=== PATIENT | female | born 1950 | race Caucasian/White ===

== ENCOUNTER 2017-04-24 09:44 | Observation (INO) ==
[2017-04-24] MEDS ORDERED: SALINE FLUSH 10ml SYRINGE IVF PRN (10:19)
[2017-04-24] MEDS ORDERED: NS 1,000 ML IV ONE (10:19)
--- NOTE | 2017-04-24 10:28 | Emergency Department Report ---
General Adult HPI - General Chief complaint: Weakness Stated complaint: Light headedness/SOA Time Seen by Provider: 04/24/17 09:57 Source: patient, family Mode of arrival: ambulatory Limitations: no limitations - History of Present Illness HPI narrative: 66-year-old female presents to the emergency department with a chief complaint of feeling lightheaded and slightly short of breath. Patient noted onset of symptoms early this morning around 9:00. Patient states she has been expressing these symptoms intermittently dating back to September 2016. Patient has not received a diagnosis yet to explain her symptoms. Patient has not seen her primary care physician regarding her symptoms. She denies any pain or discomfort. Patient was at home when her symptoms began. Symptoms are improving without intervention. She is not truly dizzy. Patient denies any trauma or injury. No other complaints or associated symptoms. She does not note any exacerbating or remitting factors. - Related Data Home Medications Medication Instructions Recorded Confirmed Aspirin [Aspir 81] 81 mg PO DAILY #0 03/21/10 04/24/17 Gabapentin 600 mg PO BID #0 03/21/10 04/24/17 Alendronate [Fosamax] 70 mg PO WEEKLY #0 11/21/12 04/24/17 Furosemide [Lasix] 60 mg PO DAILY #0 11/21/12 04/24/17 Potassium Chloride [Klor-Con M20] 20 meq PO BID #0 11/21/12 04/24/17 diphenhydrAMINE HCl [Benadryl] 25 mg PO QID PRN #0 11/21/12 04/24/17 Amlodipine [Norvasc] 5 mg PO DAILY 04/01/17 04/24/17 Carboxymethylcellulos/Glycerin 1 drop EACH EYE QID PRN 04/01/17 04/24/17 [Refresh Optive Eye Drops] Cholecalciferol (Vitamin D3) 1,000 unit PO DAILY 04/01/17 04/24/17 [Vitamin D3] Ferrous Sulfate [Iron] 325 mg PO DAILY 04/01/17 04/24/17 Hydrocodone/APAP 5/325 [[place] 1 tab PO TID PRN 04/01/17 04/24/17 5/325] Losartan [Cozaar] 50 mg PO DAILY 04/01/17 04/24/17 Meloxicam 15 mg PO DAILY PRN 04/01/17 04/24/17 Multivitamin [Multivitamins] 1 cap PO DAILY 04/01/17 04/24/17 Pyridoxine [Vitamin B-6] 200 mg PO DAILY 04/01/17 04/24/17 Sodium Chloride [Saline Nasal 1 spray EA NOSTRIL DAILY PRN 04/01/17 04/24/17 [place]] Allergies Allergy/AdvReac Type Severity Reaction Status Date / Time pregabalin Allergy Unknown SWELLING Verified 04/24/17 10:07 IN LEGS iodine Allergy Verified 04/24/17 10:07 Review of Systems Constitutional: Denies: fever, weakness Eyes: Denies: eye pain, vision change ENT: Denies: ear pain, throat pain Cardiovascular: Denies: chest pain, palpitations Respiratory: Denies: cough, dyspnea Gastrointestinal: Denies: abdominal pain, nausea, vomiting, diarrhea Genitourinary: Denies: urgency, dysuria Musculoskeletal: Denies: back pain, arthralgia Integumentary: Denies: erythema, rash Neurological: Denies: headache, numbness, vertigo Psychiatric: Denies: anxiety, depression Endocrine: Denies: fatigue, heat or cold intolerance Hematological/Lymphatic: Denies: easy bleeding, easy bruising Allergic/Immunologic: Denies: facial swelling, urticaria PFSH Patient Stated Medical History Hypertension Yes Other Infectious Yes: tissue mass removed from upper chest Post Menopausal No Now No Medical History Updates: osteoporosis. HTN. CAD. Iron def anemia. CHF. Neuropathy. LBP. Situs inversus Surgical History: Orthopedic surgery Family History: Reviewed and noncontributory. - Social History Smoking status: Never smoker Substance use type: does not use Alcohol intake frequency: a few times a week Physical Exam - Limitations Limitations: no limitations - General General appearance: alert, in no apparent distress - Normal Exams: Head:: Normocephalic without trauma Eyes:: Pupils are PERRLA w/ EOMI, No scleral icterus, irritation, or foreign bodies noted ENMT:: No facial trauma, nasal exudates, pharyngeal erythema, or exudates are noted Dental: No fractured, loose, or missing teeth noted Neck:: Full range of motion, without adenopathy, JVD, bruits or thyromegaly Chest/Respirations:: Clear all pe[place], with good airflow, and symmetry bilaterally Cardiovascular:: Regular rate and rhythm, without murmur or gallop, Pulses 2+ all extremities, capillary refill, <2 seconds all extremities Abdomen:: Bowel sounds positive, soft, non-tender, non-distended, no hepatosplenomegaly, masses or bruits noted Lymphatic:: No lymphadenopathy, or lymphedema noted Musculoskeletal:: No tenderness, or deformity noted, good range of motion, all extremities Integumentary:: No rashes, hives, or bruising noted, hair and nails, without abnormality Neurological:: Patient is alert, and oriented, cranial nerves, motor/sensory/ cerebellar, exams w/o gross deficits, to observation Psychiatric:: Patient exhibits, appropriate attention, emotion and affect Course Vital Signs Temperature 98.2 F 04/24/17 09:52 Pulse Rate 73 04/24/17 09:52 Respiratory Rate 17 04/24/17 09:52 Blood Pressure 177/85 H 04/24/17 09:52 Pulse Oximetry 100 04/24/17 09:52 Temperature 98.2 F 04/24/17 09:52 Pulse Rate 69 04/24/17 11:18 Respiratory Rate 20 04/24/17 11:18 Blood Pressure 139/74 04/24/17 11:18 Pulse Oximetry 98 04/24/17 11:18 Medical Decision Making - [facility] Narrative Medical decision making narrative: Labs / imaging were discussed in detail with the patient and questions are answered. Patient was given 500 mL normal saline intravenously times one. Patient was given 324 mg of aspirin by mouth 1 after EKG was reviewed. Patient is not having any chest discomfort or pain. Patient was started on a heparin drip per ACS protocol after EKG was reviewed with cardiology Dr. Chinchilla. Cardiology agrees to accept the patient for admission to the hospital. Cardiology is in agreement that there is no acute ST elevation MO currently present on the patient's EKG. Patient remains chest pain-free in the emergency Department. Patient does not show any reciprocal changes on her EKG. Patient is admitted to the hospital in improved condition for further evaluation and treatment by Cardiology. No further orders from accepting physician who is in agreement with the current plan of management. Patient and family are in agreement with the current plan of management. 60 minutes of critical care time was assessed to the patient due to the elevated troponin. Patient required repeated assessments at the bedside, had potential for decompensation, and required complex medical decision-making. - Differential Diagnosis ACS, Metabolic disorder, Viral Syndrome, UTI - Lab Data Result diagrams: 04/24/17 10:48 04/24/17 10:48 Lab Results 04/24/17 04/24/17 04/24/17 Range/Units 10:36 10:48 10:48 WBC 6.6 (4.5-11.0) T/MM3 RBC 3.95 L (4.00-5.20) M/MM3 Hgb 13.3 (12-16) GM/DL Hct 38.6 (36-46) % MCV 97.7 (80-100) UM3 MCH 33.7 (26-34) UUG MCHC 34.5 (31-37) GM/DL RDW Std Deviation 41.0 (36.9-50.2) FL Plt Count 152 D (130-400) T/MM3 MPV 9.2 L (9.4-12.4) UM3 Immature Gran % (Auto) 0.8 H (0.0-0.5) % Neut % (Auto) 62.9 (33-66) % Lymph % (Auto) 19.3 L (23-45) % [place] % (Auto) 15.1 H (0-9.0) % Eos % (Auto) 1.1 (0-4) % Baso % (Auto) 0.8 (0-2) % Neut # 4.2 (1.8-7.7) T/MM3 Lymph # 1.3 (1-4.8) T/MM3 [place] # 1.0 H (0-0.8) T/MM3 Eos # 0.1 (0-0.5) T/MM3 Baso # 0.1 (0-0.2) T/MM3 Abs Immat Gran (auto) 0.05 H (0.00-0.03) T/MM3 APTT (24-36) SEC Turbidity < 20 (0-20) Sodium 132 L (134-144) MEQ/L Potassium 3.1 L (3.6-5) MEQ/L Chloride 94 L (98-107) MEQ/L Carbon Dioxide 19 L (22-30) MEQ/L Anion Gap 19 H (5-15) MEQ/L BUN 9.0 (7-17) MG/DL Creatinine 0.7 (0.7-1.2) MG/DL GFR Calculation 83 BUN/Creatinine Ratio 13 (6-26) RATIO Glucose 87 (65-110) MG/DL Calculated Osmolality 253 L (261-280) MOSM/KG Calcium 8.9 (8.4-10.2) MG/DL Total Bilirubin 1.20 (0.20-1.30) MG/DL Icterus Index < 2 (0-7) AST 48 H (14-36) U/L ALT 56 H (9-52) U/L Alkaline Phosphatase 90 (38-126) U/L Troponin I 0.181 H (0-0.12) ng/ml Total Protein 7.6 (6.3-8.2) G/DL Albumin 4.4 (3.5-5.0) G/DL Globulin 3.2 (2.4-3.6) G/DL Albumin/Globulin Ratio 1.4 (1.1-2.2) RATIO Specimen Hemolysis < 15 (0-25) Ur Collection Type Urine, clean catch Urine Color Yellow (YELLOW) Urine Clarity Clear Urine pH 6.0 (5.0-8.0) Ur Specific [place] <=1.005 L (1.015-1.025) Urine Protein Negative (NEGATIVE) Urine Glucose (UA) Negative (NEGATIVE) Urine Ketones Negative (NEGATIVE) Urine Occult Blood Trace-lysed (NEGATIVE) Urine Nitrate Negative (NEGATIVE) Urine Bilirubin Negative (NEGATIVE) Urine Urobilinogen 0.2 (NORMAL) EU/DL Ur Leukocyte Esterase 1+ A (NEGATIVE) Urine RBC 0-1 (0-3) /HPF Urine WBC 1-3 (0-5) /HPF Ur Squamous Epith Cells 0-5 Urine Bacteria 1+ H (NEGATIVE) Ur Culture Indicated? Cult not indicated 04/24/17 Range/Units 10:48 WBC (4.5-11.0) T/MM3 RBC (4.00-5.20) M/MM3 Hgb (12-16) GM/DL Hct (36-46) % MCV (80-100) UM3 MCH (26-34) UUG MCHC (31-37) GM/DL RDW Std Deviation (36.9-50.2) FL Plt Count (130-400) T/MM3 MPV (9.4-12.4) UM3 Immature Gran % (Auto) (0.0-0.5) % Neut % (Auto) (33-66) % Lymph % (Auto) (23-45) % [place]irt % (Auto) (0-9.0) % Eos % (Auto) (0-4) % Baso % (Auto) (0-2) % Neut # (1.8-7.7) T/MM3 Lymph # (1-4.8) T/MM3 Wirt # (0-0.8) T/MM3 Eos # (0-0.5) T/MM3 Baso # (0-0.2) T/MM3 Abs Immat Gran (auto) (0.00-0.03) T/MM3 APTT 30.0 (24-36) SEC Turbidity (0-20) Sodium (134-144) MEQ/L Potassium (3.6-5) MEQ/L Chloride (98-107) MEQ/L Carbon Dioxide (22-30) MEQ/L Anion Gap (5-15) MEQ/L BUN (7-17) MG/DL Creatinine (0.7-1.2) MG/DL GFR Calculation BUN/Creatinine Ratio (6-26) RATIO Glucose (65-110) MG/DL Calculated Osmolality (261-280) MOSM/KG Calcium (8.4-10.2) MG/DL Total Bilirubin (0.20-1.30) MG/DL Icterus Index (0-7) AST (14-36) U/L ALT (9-52) U/L Alkaline Phosphatase (38-126) U/L Troponin I (0-0.12) ng/ml Total Protein (6.3-8.2) G/DL Albumin (3.5-5.0) G/DL Globulin (2.4-3.6) G/DL Albumin/Globulin Ratio (1.1-2.2) RATIO Specimen Hemolysis (0-25) Ur Collection Type Urine Color (YELLOW) Urine Clarity Urine pH (5.0-8.0) Ur Specific [place] (1.015-1.025) Urine Protein (NEGATIVE) Urine Glucose (UA) (NEGATIVE) Urine Ketones (NEGATIVE) Urine Occult Blood (NEGATIVE) Urine Nitrate (NEGATIVE) Urine Bilirubin (NEGATIVE) Urine Urobilinogen (NORMAL) EU/DL Ur Leukocyte Esterase (NEGATIVE) Urine RBC (0-3) /HPF Urine WBC (0-5) /HPF Ur Squamous Epith Cells Urine Bacteria (NEGATIVE) Ur Culture Indicated? - EKG Data EKG #1 EKG results narrative: Sinus rhythm. 75 bpm. T-wave inversion in V3-V6. No STEMI. Reviewed with Cardiology: Dr. Chinchilla. No chest pain or reciprocal changes present. Critical Care Time Critical Care Time: Yes Total Critical Care Time: 60 Attestation: 60 minutes of critical care time was spent discussing patient care with the patient and family, treating the patient, documenting the medical record, and making telephone calls for admission on the patient's behalf. Disposition Clinical Impression: Elevated troponin, Abnormal EKG Disposition: 02 [place] [facility] [place] Condition: Improved Time of Disposition: 11:00 (Admit: Dr. Chinchilla. ) - Seen By: physician
--- NOTE | 2017-04-24 10:46 | XRay Report ---
Indication: generalized weakness PROCEDURE: XR chest 2V: Encounter: Initial Comparison: Two-view chest, 04/11/2017 Findings: There is mild cardiomegaly relative to the reference study and minimal prominence of the azygos vein and the pulmonary vasculature which is minimally more prominent before and although there is no evidence of interstitial or airspace edema and pleural fluid is not apparent. There are degenerative changes of spine and fusion of lower lumbosacral spine. Impression: Mild cardiac and pulmonary vascular prominence without overt congestive failure or edema. Radiographic findings may reflect hypervolemia/elevated pulmonary venous pressures. .
[2017-04-24] MEDS ORDERED: ASPIRIN 81 MG CHEWABLE TABLET PO ONE (10:55)
[2017-04-24] MEDS ORDERED: POTASSIUM CHLORIDE PREMIX 10 MEQ/100 ML BAG IV SCH (11:12)
[2017-04-24] MEDS ORDERED: HEPARIN 1,000unit/ml INJECTION 10ml IV ONE (11:22)
[2017-04-24] MEDS ORDERED: HEPARIN DRIP 20,000 UNIT/500 ML BAG IV SCH (11:25)
[2017-04-24] MEDS ORDERED: NITROGLYCERIN 0.4 MG SUBLINGUAL TABLET SL PRN ×2 (12:21→14:27)
[2017-04-24 12:31] VITALS: BMI 31.4
[2017-04-24] MEDS ORDERED: LIDOCAINE 1% (10mg/ml) 30ml SDV INJ ONE (13:35)
[2017-04-24] MEDS ORDERED: HEPARIN 1,000 UNITS/500 ML PREMIX (*CVL ONLY*) IV ONE (13:35)
[2017-04-24] MEDS ORDERED: MIDAZOLAM 2mg/2ml INJECTION ONE (13:36)
[2017-04-24] MEDS ORDERED: NITROGLYCERIN 50MG INJECTION IV ONE (13:36)
[2017-04-24] MEDS ORDERED: Verapamil 5 MG/2 ML VIAL ONE (13:36)
[2017-04-24] MEDS ORDERED: FentaNYL 100 MCG/2 ML INJECTION ONE (13:36)
[2017-04-24] MEDS ORDERED: HEPARIN 1,000unit/ml INJECTION 10ml ONE (13:37)
[2017-04-24] MEDS ORDERED: METHYLPREDNISOLONE SOD SUCC 125mg/2ml INJECTION ONE (14:00)
[2017-04-24] MEDS ORDERED: DiphenhydrAMINE 50 MG/ML INJECTION ONE (14:00)
[2017-04-24] MEDS ORDERED: ATROPINE 1 MG/ML INJECTION IVP PRN (14:27)
[2017-04-24] MEDS ORDERED: MAG-AL + SIM ORAL LIQUID 30ml PO PRN (14:27)
[2017-04-24] MEDS ORDERED: ONDANSETRON 4 MG/2 ML INJECTION IVP PRN (14:27)
[2017-04-24] MEDS ORDERED: PROMETHAZINE 25 MG INJECTION IVP PRN (14:27)
[2017-04-24] MEDS ORDERED: LORazepam 0.5 MG TABLET PO PRN (14:27)
[2017-04-24] MEDS ORDERED: Bisacodyl EC TAB 5 MG TABLET PO PRN (14:27)
[2017-04-24] MEDS ORDERED: ACETAMINOPHEN 325 MG TABLET PO PRN (14:27)
[2017-04-24] MEDS ORDERED: MORPHINE SULFATE 4 MG SYRINGE IVP PRN ×2 (14:27)
[2017-04-24] MEDS ORDERED: BISACODYL 10 MG SUPPOSITORY RECTALLY PRN (14:27)
[2017-04-24] MEDS ORDERED: METOCLOPRAMIDE 10mg/2ml INJECTION IVP PRN (14:27)
[2017-04-24] MEDS: MAGNESIUM SULFATE 1gm PREMIX 1 GM/100 ML BAG IV SCH ×2 (14:35→15:41)
[2017-04-24] MEDS ORDERED: SALINE 0.65% NASAL SPRAY 44 ML BOTTLE EA NOSTRIL PRN (15:11)
[2017-04-24] MEDS ORDERED: HYDROCODONE/APAP 5mg/325mg TABLET PO PRN (15:11)
[2017-04-24] MEDS ORDERED: MELOXICAM 15 MG TABLET PO PRN (15:11)
[2017-04-24] MEDS ORDERED: REFRESH CLASSIC Eye Drops 0.4ml EACH EYE PRN (15:11)
--- NOTE | 2017-04-24 16:12 | Cardiac Catheterization Report ---
TDATE OF PROCEDURE April 24, 2017 INDICATIONS The patient is a very pleasant 66-year-old lady with shortness of breath and abnormal EKG and elevation in troponin and was referred for further evaluation by cardiac catheterization and possible intervention. INFORMED CONSENT Informed consent was obtained after explaining the procedure and the potential risks to the patient who agreed to proceed with the procedure. PROCEDURE 1. Left heart catheterization. 2. Coronary angiography. 3. Left ventriculography. TECHNIQUE The patient was prepped and draped in the usual sterile techniques. Conscious sedation was performed using Versed and fentanyl. 1% lidocaine was used for local anesthesia. Using modified Seldinger technique, arterial access was obtained into the right radial artery with placement of a 6-[place] arterial sheath. 3000 units of heparin, 300 mcg of nitroglycerin, and 2.5 mg of verapamil were given through the arterial sheath. LEFT VENTRICULOGRAPHY Left ventriculography in single-plane RIOS shallow projection showed anterior apical hypokinesia with ejection fraction of about 45-50% with no mitral regurgitation or gradient across the aortic valve. LVEDP was about 10. CORONARY ANGIOGRAPHY Left main, left anterior descending and diagonals, left circumflex and marginals , and right coronary artery were all free of significant lesions. The patient tolerated the procedure well with no complications. IMPRESSION 1. No significant coronary obstructive disease. 2. LV dysfunction with ejection fraction of about 45-50% suggestive of takotsubo cardiomyopathy. PLAN Medical management. MTDD
[2017-04-24] MEDS: CARVEDILOL 3.125 MG TABLET PO SCH ×2 (16:28→16:33)
--- NOTE | 2017-04-24 16:30 | Cardiology History & Physical ---
History of Present Illness Chief complaint: SOA HPI: Thao is a 66-year-old female who presented to the ED with a chief complaint of feeling lightheaded and slightly short of breath. She noted onset of symptoms early this morning around 9:00. She states she has been expressing these symptoms intermittently dating back to September 2016. She has not received a diagnosis yet to explain her symptoms. She has not seen her primary care physician regarding her symptoms. She denies any pain or discomfort. Patient was at home when her symptoms began. Symptoms are improving without intervention. She is not truly dizzy. She denies any trauma or injury. No other complaints or associated symptoms. She is seen in her room on [facility]. She reports GARCIA, dizziness and nausea at times. She denies recent illness, fever, chills, sore throat, cough, chest pain or pressure, V/D, dysurea. Review of Systems - Constitutional Constitutional: Absent: chills, fever(s) - EENMT Eyes: Absent: change in vision Balance: Absent: vertigo Mouth/Throat: Absent: sore throat - Cardiovascular Cardiovascular: Present: dyspnea on exertion, orthopnea. Absent: chest pain, palpitations, syncope Rhythm: Present: regular rhythm Vascular: Absent: pedal edema - Respiratory Respiratory: Absent: cough - Gastrointestinal Gastrointestinal: Present: nausea. Absent: diarrhea, vomiting - Genitourinary Genitourinary: Absent: dysuria - Integumentary/Breasts Integumentary: Absent: rash - Neurological Neurological: Present: dizziness - Endocrine Endocrine: Absent: palpitations PFSH Patient Stated Medical History Hypertension Yes Osteoarthritis Yes Other Infectious Yes: tissue mass removed from upper chest Medical History Updates: osteoporosis. HTN. CAD. Iron def anemia. CHF. Neuropathy. LBP. Situs inversus Surgical History: Orthopedic surgery - Social History Smoking status: Never smoker Substance use type: does not use Alcohol intake frequency: 3 or more drinks per day (vodka) Household members: spouse Current occupational status: unemployed Current residence: Apartment/Private Home Medications Home Medications Medication Instructions Recorded Confirmed Type Aspirin [Aspir 81] 81 mg PO DAILY #0 03/21/10 04/24/17 History Gabapentin 600 mg PO BID #0 03/21/10 04/24/17 History Alendronate [Fosamax] 70 mg PO WEEKLY #0 11/21/12 04/24/17 History Furosemide [Lasix] 60 mg PO DAILY #0 11/21/12 04/24/17 History Potassium Chloride [Klor-Con M20] 20 meq PO BID #0 11/21/12 04/24/17 History diphenhydrAMINE HCl [Benadryl] 25 mg PO QID PRN #0 11/21/12 04/24/17 History Amlodipine [Norvasc] 5 mg PO DAILY 04/01/17 04/24/17 History Carboxymethylcellulos/Glycerin 1 drop EACH EYE QID PRN 04/01/17 04/24/17 History [Refresh Optive Eye Drops] Cholecalciferol (Vitamin D3) 1,000 unit PO DAILY 04/01/17 04/24/17 History [Vitamin D3] Ferrous Sulfate [Iron] 325 mg PO DAILY 04/01/17 04/24/17 History Hydrocodone/APAP 5/325 [[place] 1 tab PO TID PRN 04/01/17 04/24/17 History 5/325] Losartan [Cozaar] 50 mg PO DAILY 04/01/17 04/24/17 History Meloxicam 15 mg PO DAILY PRN 04/01/17 04/24/17 History Multivitamin [Multivitamins] 1 cap PO DAILY 04/01/17 04/24/17 History Pyridoxine [Vitamin B-6] 200 mg PO DAILY 04/01/17 04/24/17 History Sodium Chloride [Saline Nasal 1 spray EA NOSTRIL DAILY PRN 04/01/17 04/24/17 History [place]] Allergies Allergy/AdvReac Type Severity Reaction Status Date / Time pregabalin Allergy Unknown SWELLING Verified 04/24/17 10:07 IN LEGS iodine Allergy Verified 04/24/17 10:07 Exam Vital signs: Temperature 98.8 F 04/24/17 12:31 Pulse Rate 75 04/24/17 16:00 Respiratory Rate 20 04/24/17 16:00 Blood Pressure 137/71 04/24/17 16:00 Pulse Oximetry 97 04/24/17 16:00 Oxygen Delivery Method Room Air - Constitutional mild distress, obese, cooperative - Routine HEENT Exam Head: Present: normocephalic - Routine Neck Exam Absent: JVD, carotid bruit - Routine Chest/Breast/Axilla Exam Chest wall: Absent: tenderness - Routine Respiratory Exam Present: decreased breath sounds, CTA bilaterally. Absent: rales, wheezes - Routine Cardiovascular Exam Present: RRR, no murmur. Absent: JVD - Routine Abdominal Exam Present: soft, normoactive bowel sounds - Routine Extremities Exam Present: no edema - Routine Skin Exam Present: intact, dry, warm - Routine Neurological Exam Present: alert, oriented X3 - Routine Psychiatric Exam Present: normal affect, normal thought process Results 04/25/17 04:49 04/25/17 04:49 Intake and Output 04/24/17 04/24/17 04/24/17 06:59 14:59 22:59 Intake Total 10.875 / 670.775 100 / 100 Balance 10.875 / 670.775 100 / 100 Intake: IV 10.875 / 10.875 100 / 100 HEPARIN DRIP 20,000 unit 10.875 / 10.875 In 500 ml @ 22.5 mls/hr IV .[id number] ALESSANDRO Rx#: [id number] MAG SULF 1gm PREMIX 1 gm 100 / 100 In 100 ml @ 100 mls/hr IV Q1H ALESSANDRO Rx#:[id number] Other: # Voids 1 1 # Bowel Movements 1 Weight 171 lb 8.314 oz Patient Weight 04/25/17 06:59 Weight 171 lb 8.314 oz Laboratory Results - last 48 hr 04/24/17 04/24/17 04/24/17 10:36 10:45 10:48 WBC 6.6 RBC 3.95 L Hgb 13.3 Hct 38.6 MCV 97.7 MCH 33.7 MCHC 34.5 RDW Std Deviation 41.0 Plt Count 152 D MPV 9.2 L Immature Gran % (Auto) 0.8 H Neut % (Auto) 62.9 Lymph % (Auto) 19.3 L [place] % (Auto) 15.1 H Eos % (Auto) 1.1 Baso % (Auto) 0.8 Neut # 4.2 Lymph # 1.3 [place] # 1.0 H Eos # 0.1 Baso # 0.1 Abs Immat Gran (auto) 0.05 H APTT Turbidity Sodium Potassium Chloride Carbon Dioxide Anion Gap BUN Creatinine GFR Calculation BUN/Creatinine Ratio Glucose Calculated Osmolality Calcium Magnesium 1.3 L Total Bilirubin Icterus Index AST ALT Alkaline Phosphatase Troponin I Total Protein Albumin Globulin Albumin/Globulin Ratio Specimen Hemolysis Ur Collection Type Urine, clean catch Urine Color Yellow Urine Clarity Clear Urine pH 6.0 Ur Specific [place] <=1.005 L Urine Protein Negative Urine Glucose (UA) Negative Urine Ketones Negative Urine Occult Blood Trace-lysed Urine Nitrate Negative Urine Bilirubin Negative Urine Urobilinogen 0.2 Ur Leukocyte Esterase 1+ A Urine RBC 0-1 Urine WBC 1-3 Ur Squamous Epith Cells 0-5 Urine Bacteria 1+ H Ur Culture Indicated? Cult not indicated 04/24/17 04/24/17 10:48 10:48 WBC RBC Hgb Hct MCV MCH MCHC RDW Std Deviation Plt Count MPV Immature Gran % (Auto) Neut % (Auto) Lymph % (Auto) [place] % (Auto) Eos % (Auto) Baso % (Auto) Neut # Lymph # [place] # Eos # Baso # Abs Immat Gran (auto) APTT 30.0 Turbidity < 20 Sodium 132 L Potassium 3.1 L Chloride 94 L Carbon Dioxide 19 L Anion Gap 19 H BUN 9.0 Creatinine 0.7 GFR Calculation 83 BUN/Creatinine Ratio 13 Glucose 87 Calculated Osmolality 253 L Calcium 8.9 Magnesium Total Bilirubin 1.20 Icterus Index < 2 AST 48 H ALT 56 H Alkaline Phosphatase 90 Troponin I 0.181 H Total Protein 7.6 Albumin 4.4 Globulin 3.2 Albumin/Globulin Ratio 1.4 Specimen Hemolysis < 15 Ur Collection Type Urine Color Urine Clarity Urine pH Ur Specific [place] Urine Protein Urine Glucose (UA) Urine Ketones Urine Occult Blood Urine Nitrate Urine Bilirubin Urine Urobilinogen Ur Leukocyte Esterase Urine RBC Urine WBC Ur Squamous Epith Cells Urine Bacteria Ur Culture Indicated? - Imaging and Cardiology Echo: report reviewed EKG results: image reviewed Imaging & Cardiology Narrative: Date of Exam: 04/24/17 Ordering Provider: Leroy Galindo DO Type of Exam(s): XR chest 2V Reason for Exam(s): generalized weakness Indication: generalized weakness PROCEDURE: XR chest 2V: Encounter: Initial Comparison: Two-view chest, 04/11/2017 Findings: There is mild cardiomegaly relative to the reference study and minimal prominence of the azygos vein and the pulmonary vasculature which is minimally more prominent before and although there is no evidence of interstitial or airspace edema and pleural fluid is not apparent. There are degenerative changes of spine and fusion of lower lumbosacral spine. Impression: Mild cardiac and pulmonary vascular prominence without overt congestive failure or edema. Radiographic findings may reflect hypervolemia/elevated pulmonary venous pressures. 04/24/17 16:35 04/25/17 10:36 Date of Exam: 04/24/17 Type of Exam(s): US echo doppler complete DATE OF PROCEDURE April 24, 2017 This is a two-dimensional echo with spectral Doppler, color-flow and M-mode. It was obtained in a patient with shortness of air. Left atrial dimension is normal. Left ventricle end-diastolic dimension is normal. Left ventricle wall thickness is normal. [place] is hypokinetic with ejection fraction of about 55%. Right atrium is normal. Right ventricle is normal. Aortic root dimension is normal. Mitral valve is morphologically normal with mild mitral regurgitation. Aortic valve is a trileaflet structure with no stenosis. Mild aortic insufficiency is present. Tricuspid valve shows mild tricuspid regurgitation with mild pulmonary hypertension with estimated pulmonary artery systolic pressure of 38. Pulmonary valve shows trace of pulmonary insufficiency. There is no pericardial effusion. IMPRESSION 1. Apical hypokinesia with ejection fraction of about 55%. 2. Mild mitral regurgitation. 3. Mild aortic insufficiency. 4. Mild tricuspid regurgitation with mild pulmonary hypertension with estimated pulmonary artery systolic pressure of 38. 5. Trace of pulmonary insufficiency. - EKG Interpretation EKG: sinus rhythm EKG interpretations - Dysrhythmias Sinus rhythms and dysrhythmias: sinus rhythm - Blocks, axis, hypertrophy, ST abn Repolarization changes or abnormalities: ST or T wave suggestive of ischemia Hospital Course This is a general summary of the patient's hospital course. For more details refer to the complete medical record. Assessment and Plan (1) Takotsubo cardiomyopathy Status: Acute Start BB, already takes ARB and CCB. Obtain echo, monitor telemetry. (2) Essential (primary) hypertension Status: Acute continue home meds. (3) Alcohol use Status: Acute Patient reports "2 glasses of vodka daily" - Attestation Attestation Narrative: 04/25/17 14:04 Recommendation After examining the patient I agree with the above assessment. I am involved in the formulation of the patient's plan of care. Sepsis Assessment - Evaluation Sepsis screening result: No Definite Risk
[2017-04-24] MEDS: NS 1,000 ML IV SCH (16:34)
[2017-04-24] MEDS: GABAPENTIN 600 MG PO SCH (21:19)
[2017-04-24] MEDS: HYDROCODONE/APAP 5mg/325mg TABLET PO PRN (23:30)
[2017-04-25 04:29] VITALS: RESP 22; O2SAT 97
[2017-04-25] MEDS ORDERED: FERROUS SULFATE 324 MG TABLET PO SCH (08:00)
[2017-04-25] MEDS: CARVEDILOL 3.125 MG TABLET PO SCH (08:10)
[2017-04-25] MEDS: GABAPENTIN 600 MG PO SCH (08:12)
[2017-04-25] MEDS: HYDROCODONE/APAP 5mg/325mg TABLET PO PRN (08:13)
[2017-04-25] MEDS ORDERED: POM LOSARTAN 50 MG TABLET PO SCH (09:00)
[2017-04-25] MEDS ORDERED: POM AMLODIPINE 5 MG TABLET PO SCH (09:00)
[2017-04-25] MEDS ORDERED: MULTI-VITAMIN PLAIN TABLET PO SCH (09:00)
[2017-04-25] MEDS ORDERED: POM FUROSEMIDE 40 MG TABLET PO SCH (09:00)
[2017-04-25] MEDS ORDERED: PYRIDOXINE 100mg TABLET PO SCH (09:00)
[2017-04-25] MEDS ORDERED: POM ASPIRIN *EC* 81 MG TABLET PO SCH (09:00)
--- NOTE | 2017-04-25 09:26 | Echocardiogram ---
DATE OF PROCEDURE April 24, 2017 This is a two-dimensional echo with spectral Doppler, color-flow and M-mode. It was obtained in a patient with shortness of air. Left atrial dimension is normal. Left ventricle end-diastolic dimension is normal. Left ventricle wall thickness is normal. Marrero is hypokinetic with ejection fraction of about 55%. Right atrium is normal. Right ventricle is normal. Aortic root dimension is normal. Mitral valve is morphologically normal with mild mitral regurgitation. Aortic valve is a trileaflet structure with no stenosis. Mild aortic insufficiency is present. Tricuspid valve shows mild tricuspid regurgitation with mild pulmonary hypertension with estimated pulmonary artery systolic pressure of 38. Pulmonary valve shows trace of pulmonary insufficiency. There is no pericardial effusion. IMPRESSION 1. Apical hypokinesia with ejection fraction of about 55%. 2. Mild mitral regurgitation. 3. Mild aortic insufficiency. 4. Mild tricuspid regurgitation with mild pulmonary hypertension with estimated pulmonary artery systolic pressure of 38. 5. Trace of pulmonary insufficiency. MTDD
[2017-04-25 09:43] VITALS: BP 119/60; PULSE 68; TEMP 97.7
--- NOTE | 2017-04-25 10:40 | Discharge Summary ---
<Jeanne Ahuja - Last Filed: 04/25/17 10:37> Discharge Information Date of admission: 04/24/17 11:47 Anticipated date of discharge: 04/25/17 Attending Physician: Len Chinchilla MD Primary care physician: Jerome Leslie MD - Discharge Diagnosis Discharge Diagnosis: Takotsubo Cardiomyopathy - Procedures Procedures: Date of Exam: 04/24/17 Type of Exam(s): CA heart cath LT TDATE OF PROCEDURE April 24, 2017 INDICATIONS The patient is a very pleasant 66-year-old lady with shortness of breath and abnormal EKG and elevation in troponin and was referred for further evaluation by cardiac catheterization and possible intervention. INFORMED CONSENT Informed consent was obtained after explaining the procedure and the potential risks to the patient who agreed to proceed with the procedure. PROCEDURE 1. Left heart catheterization. 2. Coronary angiography. 3. Left ventriculography. TECHNIQUE The patient was prepped and draped in the usual sterile techniques. Conscious sedation was performed using Versed and fentanyl. 1% lidocaine was used for local anesthesia. Using modified Seldinger technique, arterial access was obtained into the right radial artery with placement of a 6-Sami arterial sheath. 3000 units of heparin, 300 mcg of nitroglycerin, and 2.5 mg of verapamil were given through the arterial sheath. LEFT VENTRICULOGRAPHY Left ventriculography in single-plane RIOS shallow projection showed anterior apical hypokinesia with ejection fraction of about 45-50% with no mitral regurgitation or gradient across the aortic valve. LVEDP was about 10. CORONARY ANGIOGRAPHY Left main, left anterior descending and diagonals, left circumflex and marginals , and right coronary artery were all free of significant lesions. The patient tolerated the procedure well with no complications. IMPRESSION 1. No significant coronary obstructive disease. 2. LV dysfunction with ejection fraction of about 45-50% suggestive of takotsubo cardiomyopathy. PLAN Medical management. - Laboratory Labs: 04/25/17 04:49 04/25/17 04:49 Laboratory Results - last 48 hr 04/24/17 04/24/17 04/24/17 10:36 10:45 10:48 WBC 6.6 RBC 3.95 L Hgb 13.3 Hct 38.6 MCV 97.7 MCH 33.7 MCHC 34.5 RDW Std Deviation 41.0 Plt Count 152 D MPV 9.2 L Immature Gran % (Auto) 0.8 H Neut % (Auto) 62.9 Lymph % (Auto) 19.3 L [place] % (Auto) 15.1 H Eos % (Auto) 1.1 Baso % (Auto) 0.8 Neut # 4.2 Lymph # 1.3 [place] # 1.0 H Eos # 0.1 Baso # 0.1 Abs Immat Gran (auto) 0.05 H APTT Turbidity Sodium Potassium Chloride Carbon Dioxide Anion Gap BUN Creatinine GFR Calculation BUN/Creatinine Ratio Glucose Calculated Osmolality Calcium Magnesium 1.3 L Total Bilirubin Icterus Index AST ALT Alkaline Phosphatase Troponin I Total Protein Albumin Globulin Albumin/Globulin Ratio Triglycerides Cholesterol LDL Cholesterol, Calc VLDL Cholesterol HDL Cholesterol Cholesterol/HDL Ratio Specimen Hemolysis Ur Collection Type Urine, clean catch Urine Color Yellow Urine Clarity Clear Urine pH 6.0 Ur Specific [place] <=1.005 L Urine Protein Negative Urine Glucose (UA) Negative Urine Ketones Negative Urine Occult Blood Trace-lysed Urine Nitrate Negative Urine Bilirubin Negative Urine Urobilinogen 0.2 Ur Leukocyte Esterase 1+ A Urine RBC 0-1 Urine WBC 1-3 Ur Squamous Epith Cells 0-5 Urine Bacteria 1+ H Ur Culture Indicated? Cult not indicated 04/24/17 04/24/17 04/24/17 10:48 10:48 17:35 WBC RBC Hgb Hct MCV MCH MCHC RDW Std Deviation Plt Count MPV Immature Gran % (Auto) Neut % (Auto) Lymph % (Auto) [place] % (Auto) Eos % (Auto) Baso % (Auto) Neut # Lymph # [place] # Eos # Baso # Abs Immat Gran (auto) APTT 30.0 Turbidity < 20 Sodium 132 L Potassium 3.1 L Chloride 94 L Carbon Dioxide 19 L Anion Gap 19 H BUN 9.0 Creatinine 0.7 GFR Calculation 83 BUN/Creatinine Ratio 13 Glucose 87 Calculated Osmolality 253 L Calcium 8.9 Magnesium Total Bilirubin 1.20 Icterus Index < 2 AST 48 H ALT 56 H Alkaline Phosphatase 90 Troponin I 0.181 H 0.169 H Total Protein 7.6 Albumin 4.4 Globulin 3.2 Albumin/Globulin Ratio 1.4 Triglycerides Cholesterol LDL Cholesterol, Calc VLDL Cholesterol HDL Cholesterol Cholesterol/HDL Ratio Specimen Hemolysis < 15 < 15 Ur Collection Type Urine Color Urine Clarity Urine pH Ur Specific [place] Urine Protein Urine Glucose (UA) Urine Ketones Urine Occult Blood Urine Nitrate Urine Bilirubin Urine Urobilinogen Ur Leukocyte Esterase Urine RBC Urine WBC Ur Squamous Epith Cells Urine Bacteria Ur Culture Indicated? 04/24/17 04/25/17 04/25/17 23:13 04:49 04:49 WBC RBC Hgb Hct MCV MCH MCHC RDW Std Deviation Plt Count MPV Immature Gran % (Auto) Neut % (Auto) Lymph % (Auto) [place] % (Auto) Eos % (Auto) Baso % (Auto) Neut # Lymph # [place] # Eos # Baso # Abs Immat Gran (auto) APTT Turbidity < 20 Sodium 137 Potassium 4.0 D Chloride 104 D Carbon Dioxide 19 L Anion Gap 14 BUN 11.0 Creatinine 0.6 L GFR Calculation 100 BUN/Creatinine Ratio 18 Glucose 153 H Calculated Osmolality 266 Calcium 8.6 Magnesium 2.3 D Total Bilirubin Icterus Index < 2 AST ALT Alkaline Phosphatase Troponin I 0.133 H 0.095 Total Protein Albumin Globulin Albumin/Globulin Ratio Triglycerides 93 Cholesterol 196 LDL Cholesterol, Calc 105.4 VLDL Cholesterol 18.6 HDL Cholesterol 72 H Cholesterol/HDL Ratio 2.7 Specimen Hemolysis < 15 27 H Ur Collection Type Urine Color Urine Clarity Urine pH Ur Specific [place] Urine Protein Urine Glucose (UA) Urine Ketones Urine Occult Blood Urine Nitrate Urine Bilirubin Urine Urobilinogen Ur Leukocyte Esterase Urine RBC Urine WBC Ur Squamous Epith Cells Urine Bacteria Ur Culture Indicated? 04/25/17 04:49 WBC 5.2 RBC 3.84 L Hgb 12.9 Hct 37.7 MCV 98.2 MCH 33.6 MCHC 34.2 RDW Std Deviation 41.5 Plt Count 173 MPV 9.8 Immature Gran % (Auto) 1.1 H Neut % (Auto) 83.8 H Lymph % (Auto) 11.1 L [place] % (Auto) 3.8 Eos % (Auto) 0.0 Baso % (Auto) 0.2 Neut # 4.4 Lymph # 0.6 L [place] # 0.2 Eos # 0.0 Baso # 0.0 Abs Immat Gran (auto) 0.06 H APTT Turbidity Sodium Potassium Chloride Carbon Dioxide Anion Gap BUN Creatinine GFR Calculation BUN/Creatinine Ratio Glucose Calculated Osmolality Calcium Magnesium Total Bilirubin Icterus Index AST ALT Alkaline Phosphatase Troponin I Total Protein Albumin Globulin Albumin/Globulin Ratio Triglycerides Cholesterol LDL Cholesterol, Calc VLDL Cholesterol HDL Cholesterol Cholesterol/HDL Ratio Specimen Hemolysis Ur Collection Type Urine Color Urine Clarity Urine pH Ur Specific [place] Urine Protein Urine Glucose (UA) Urine Ketones Urine Occult Blood Urine Nitrate Urine Bilirubin Urine Urobilinogen Ur Leukocyte Esterase Urine RBC Urine WBC Ur Squamous Epith Cells Urine Bacteria Ur Culture Indicated? - Radiology Radiology: Date of Exam: 04/24/17 Type of Exam(s): US echo doppler complete DATE OF PROCEDURE April 24, 2017 This is a two-dimensional echo with spectral Doppler, color-flow and M-mode. It was obtained in a patient with shortness of air. Left atrial dimension is normal. Left ventricle end-diastolic dimension is normal. Left ventricle wall thickness is normal. Fletcher is hypokinetic with ejection fraction of about 55%. Right atrium is normal. Right ventricle is normal. Aortic root dimension is normal. Mitral valve is morphologically normal with mild mitral regurgitation. Aortic valve is a trileaflet structure with no stenosis. Mild aortic insufficiency is present. Tricuspid valve shows mild tricuspid regurgitation with mild pulmonary hypertension with estimated pulmonary artery systolic pressure of 38. Pulmonary valve shows trace of pulmonary insufficiency. There is no pericardial effusion. IMPRESSION 1. Apical hypokinesia with ejection fraction of about 55%. 2. Mild mitral regurgitation. 3. Mild aortic insufficiency. 4. Mild tricuspid regurgitation with mild pulmonary hypertension with estimated pulmonary artery systolic pressure of 38. 5. Trace of pulmonary insufficiency. Date of Exam: 04/24/17 Ordering Provider: Leroy Galindo DO Type of Exam(s): XR chest 2V Reason for Exam(s): generalized weakness Indication: generalized weakness PROCEDURE: XR chest 2V: Encounter: Initial Comparison: Two-view chest, 04/11/2017 Findings: There is mild cardiomegaly relative to the reference study and minimal prominence of the azygos vein and the pulmonary vasculature which is minimally more prominent before and although there is no evidence of interstitial or airspace edema and pleural fluid is not apparent. There are degenerative changes of spine and fusion of lower lumbosacral spine. Impression: Mild cardiac and pulmonary vascular prominence without overt congestive failure or edema. Radiographic findings may reflect hypervolemia/elevated pulmonary venous pressures. History of Present Illness HPI: Thao is a 66-year-old female who presented to the ED with a chief complaint of feeling lightheaded and slightly short of breath. She noted onset of symptoms early this morning around 9:00. She states she has been expressing these symptoms intermittently dating back to September 2016. She has not received a diagnosis yet to explain her symptoms. She has not seen her primary care physician regarding her symptoms. She denies any pain or discomfort. Patient was at home when her symptoms began. Symptoms are improving without intervention. She is not truly dizzy. She denies any trauma or injury. No other complaints or associated symptoms. She is seen in her room on [facility]. She reports GARCIA, dizziness and nausea at times. She denies recent illness, fever, chills, sore throat, cough, chest pain or pressure, V/D, dysurea. Hospital Course This is a general summary of the patient's hospital course. For more details refer to the complete medical record. Time spent with patient: 25 - 35 minutes Exam Vital signs: Temperature 97.7 F 04/25/17 07:45 Pulse Rate 68 04/25/17 09:30 Respiratory Rate 22 04/25/17 09:30 Blood Pressure 119/60 04/25/17 09:30 Pulse Oximetry 97 04/25/17 07:45 Oxygen Delivery Method Room Air - Constitutional no acute distress, well nourished, cooperative - Routine HEENT Exam Head: Present: normocephalic ENT: Present: mucous membranes moist - Routine Neck Exam Absent: JVD, carotid bruit - Routine Chest/Breast/Axilla Exam Chest wall: Absent: tenderness - Routine Respiratory Exam Present: CTA bilaterally. Absent: rales, wheezes - Routine Cardiovascular Exam Present: RRR, no murmur. Absent: JVD - Routine Abdominal Exam Present: soft, normoactive bowel sounds - Routine Extremities Exam Present: no edema - Routine Skin Exam Present: intact, dry, warm - Routine Neurological Exam Present: alert, oriented X3 - Routine Psychiatric Exam Present: normal affect, normal thought process Results 04/25/17 04:49 04/25/17 04:49 Cardiac Enzymes 04/24/17 04/24/17 04/25/17 Range/Units 17:35 23:13 04:49 Troponin I 0.169 H 0.133 H 0.095 (0-0.12) ng/ml Lipids 04/25/17 Range/Units 04:49 Triglycerides 93 (35-135) MG/DL Cholesterol 196 (132-199) MG/DL HDL Cholesterol 72 H (40-60) MG/DL Cholesterol/HDL Ratio 2.7 (0-4.0) RATIO CBC 04/25/17 Range/Units 04:49 WBC 5.2 (4.5-11.0) T/MM3 RBC 3.84 L (4.00-5.20) M/MM3 Hgb 12.9 (12-16) GM/DL Hct 37.7 (36-46) % Plt Count 173 (130-400) T/MM3 Neut # 4.4 (1.8-7.7) T/MM3 Lymph # 0.6 L (1-4.8) T/MM3 [place] # 0.2 (0-0.8) T/MM3 Eos # 0.0 (0-0.5) T/MM3 Baso # 0.0 (0-0.2) T/MM3 Comprehensive Metabolic Panel 04/25/17 Range/Units 04:49 Sodium 137 (134-144) MEQ/L Potassium 4.0 D (3.6-5) MEQ/L Chloride 104 D (98-107) MEQ/L Carbon Dioxide 19 L (22-30) MEQ/L BUN 11.0 (7-17) MG/DL Creatinine 0.6 L (0.7-1.2) MG/DL Glucose 153 H (65-110) MG/DL Calcium 8.6 (8.4-10.2) MG/DL Intake and Output 04/24/17 04/25/17 04/25/17 22:59 06:59 14:59 Intake Total 749.167 / 749.167 800 / 800 120 / 120 Balance 749.167 / 749.167 800 / 800 120 / 120 Intake: IV 359.167 / 359.167 MAG SULF 1gm PREMIX 1 gm 200 / 200 In 100 ml @ 100 mls/hr IV Q1H ALESSANDRO Rx#:[id number] Normal Saline 1,000 ml @ 159.167 / 159.167 50 mls/hr IV .Q20H ALESSANDRO Rx #:[id number] Oral 390 / 390 800 / 800 120 / 120 Other: # Voids 1 1 2 # Bowel Movements 1 1 Weight 166 lb 10.711 oz Patient Weight 04/26/17 06:59 Weight 166 lb 10.711 oz - Imaging and Cardiology EKG results: image reviewed - EKG Interpretation EKG: sinus rhythm (ST deviation and T wave changes indicating ischemia) Discharge Plan - Med Rec/Dispo Referrals/Follow Up: Len Chinchilla MD [Physician] - 05/10/17 9:20 am Jinny Instructions: [facility] [place] Heart Cath Additional Instructions: Lab and EKG in 1 week on 05/01/17 at 2:30pm Prescriptions: New Carvedilol [Coreg] 3.125 mg PO BIDWM #60 tablet Continue Aspirin [Aspir 81] 81 mg PO DAILY #0 diphenhydrAMINE HCl [Benadryl] 25 mg PO QID PRN #0 PRN Reason: Prn Orders Alendronate [Fosamax] 70 mg PO WEEKLY #0 Furosemide [Lasix] 60 mg PO DAILY #0 Potassium Chloride [Klor-Con M20] 20 meq PO BID #0 Amlodipine [Norvasc] 5 mg PO DAILY Carboxymethylcellulos/Glycerin [Refresh Optive Eye Drops] 1 drop EACH EYE QID PRN PRN Reason: Prn Orders Ferrous Sulfate [Iron] 325 mg PO DAILY Hydrocodone/APAP 5/325 [[place] 5/325] 1 tab PO TID PRN PRN Reason: Pain Sodium Chloride [Saline Nasal [place]] 1 spray EA NOSTRIL DAILY PRN PRN Reason: Prn Orders Pyridoxine [Vitamin B-6] 200 mg PO DAILY Meloxicam 15 mg PO DAILY PRN PRN Reason: Pain Gabapentin 600 mg PO BID #0 Losartan [Cozaar] 50 mg PO DAILY Cholecalciferol (Vitamin D3) [Vitamin D3] 1,000 unit PO DAILY Multivitamin [Multivitamins] 1 cap PO DAILY - Disposition 01 Discharged Home, Self-Care <Len Chinchilla - Last Filed: 04/29/17 13:12> Discharge Information Date of admission: 04/24/17 11:47 Attending Physician: Len Chinchilla MD Primary care physician: Jerome Leslie MD - Laboratory Labs: 04/25/17 04:49 04/25/17 04:49 Hospital Course This is a general summary of the patient's hospital course. For more details refer to the complete medical record. Exam Vital signs: Temperature 97.7 F 04/25/17 07:45 Pulse Rate 68 04/25/17 09:30 Respiratory Rate 22 04/25/17 09:30 Blood Pressure 119/60 04/25/17 09:30 Pulse Oximetry 97 04/25/17 07:45 Oxygen Delivery Method Room Air Results 04/25/17 04:49 04/25/17 04:49 Discharge Plan - Med Rec/Dispo - Attestation Attestation Narrative: 04/29/17 13:12 Recommendation After examining the patient I agree with the above assessment. I am involved in the formulation of the patient's plan of care.
[2017-04-25] MEDS: NS 1,000 ML IV SCH (11:00)
[2017-04-26] MEDS ORDERED: ALENDRONATE 70 MG TABLET PO SCH (07:00)
== END 2017-04-25 11:05 | disposition home or self-care (01) ==
LOC: ED 09:44 → SRG 09:44
PROVIDERS: ADMIT Internal Medicine Cardiovascular Disease; ATTEND Internal Medicine Cardiovascular Disease

== ENCOUNTER 2017-08-06 09:17 | Inpatient (IN) ==
[2017-08-06] MEDS: SALINE FLUSH 10ml SYRINGE IVF PRN ×4 (09:52→22:40)
--- NOTE | 2017-08-06 09:57 | Emergency Department Report ---
General Adult HPI - General Chief complaint: Recheck/Abnormal Lab/Rx Stated complaint: doc sent , labs were not good Time Seen by Provider: 08/06/17 09:27 Source: patient, family Mode of arrival: wheelchair Limitations: no limitations - History of Present Illness HPI narrative: 66-year-old female presents to the emergency department with a chief complaint of abnormal labs. Patient was seen by Dr. Leslie yesterday in the office and laboratory studies were ordered. Patient is unsure exactly which studies were unremarkable. Patient denies any current pain or discomfort other than a mild dull ache at the right parietal region of the her head where she struck her head yesterday in a fall. She denies any other complaints or associated symptoms other generalized weakness which has been gradually progressive in nature. She was at home when her symptoms began. Symptoms have been persistent in nature since onset. - Related Data Home Medications Medication Instructions Recorded Confirmed Aspirin [Aspir 81] 81 mg PO DAILY #0 03/21/10 08/06/17 Gabapentin 600 mg PO TID #0 03/21/10 08/06/17 Alendronate [Fosamax] 70 mg PO WEEKLY #0 11/21/12 08/06/17 Furosemide [Lasix] 60 mg PO DAILY #0 11/21/12 08/06/17 Potassium Chloride [Klor-Con M20] 20 meq PO TID #0 11/21/12 08/06/17 Amlodipine [Norvasc] 5 mg PO BID 04/01/17 08/06/17 Cholecalciferol (Vitamin D3) 1,000 unit PO DAILY 04/01/17 08/06/17 [Vitamin D3] Hydrocodone/APAP 5/325 [[place] 1 tab PO TID PRN 04/01/17 08/06/17 5/325] Losartan [Cozaar] 50 mg PO DAILY 04/01/17 08/06/17 Citalopram [Celexa] 40 mg PO DAILY 08/06/17 08/06/17 LORazepam [Ativan] 0.5 mg PO DAILY PRN 08/06/17 08/06/17 Previous Rx's Medication Instructions Recorded Carvedilol [Coreg] 3.125 mg PO BIDWM #60 tab 04/25/17 Allergies Allergy/AdvReac Type Severity Reaction Status Date / Time pregabalin Allergy Unknown SWELLING Verified 08/06/17 09:39 IN LEGS Review of Systems Constitutional: Denies: fever, chills Eyes: Denies: eye pain, vision change ENT: Denies: ear pain, throat pain Cardiovascular: Denies: chest pain, palpitations Respiratory: Denies: cough, dyspnea Gastrointestinal: Denies: abdominal pain, nausea, vomiting, diarrhea Genitourinary: Denies: urgency, dysuria Musculoskeletal: Denies: back pain, arthralgia Integumentary: Denies: erythema, rash Neurological: Reports: headache. Denies: numbness Psychiatric: Denies: anxiety, depression Endocrine: Reports: fatigue. Denies: heat or cold intolerance Hematological/Lymphatic: Denies: easy bleeding, easy bruising Allergic/Immunologic: Denies: facial swelling, urticaria PFSH Patient Stated Medical History Dementia Yes: PER Hypertension Yes Osteoarthritis Yes Other Infectious Yes: tissue mass removed from upper chest Post Menopausal Yes Now No Clinic Medical History Elevated troponin (Acute Medical) Abnormal EKG (Acute Medical) Takotsubo cardiomyopathy (Acute Medical) Essential (primary) hypertension (Acute Medical) Alcohol use (Acute Social Hx) Hyponatremia (Acute Medical) Anemia (Acute Medical) Hypokalemia (Acute Medical) Dyspnea (Inactive Medical) Dyspnea (Inactive Medical) Dyspnea (Inactive Medical) Fall (Inactive Medical) Headache (Inactive Medical) Medication refill (Inactive Medical) Tremor (Inactive Medical) Volume depletion (Inactive Medical) Medical History Updates: osteoporosis. HTN. CAD. Iron def anemia. CHF. Neuropathy. LBP. Situs inversus Surgical History: Orthopedic surgery Family History: Reviewed and Noncontributory. - Social History Smoking status: Never smoker Substance use type: does not use Alcohol intake frequency: a few times a week Physical Exam - Limitations Limitations: no limitations - General General appearance: alert, in no apparent distress - Normal Exams: Head:: Normocephalic without trauma (2 cm healing laceration to the right parietal region. No sign of infection. No raccoon eyes, Atkins sign, hemotympanum, or csf leak. The midface is stable. No malocclusion of the jaw.) Eyes:: Pupils are PERRLA w/ EOMI, No scleral icterus, irritation, or foreign bodies noted ENMT:: No facial trauma, nasal exudates, pharyngeal erythema, or exudates are noted Dental: No fractured, loose, or missing teeth noted Neck:: Full range of motion (no midline tenderness or deformity of the cervical spine.), without adenopathy, JVD, bruits or thyromegaly Chest/Respirations:: Clear all peguero, with good airflow, and symmetry bilaterally Cardiovascular:: Regular rate and rhythm, without murmur or gallop, Pulses 2+ all extremities, capillary refill, <2 seconds all extremities Abdomen:: Bowel sounds positive, soft, non-tender, non-distended, no hepatosplenomegaly, masses or bruits noted Lymphatic:: No lymphadenopathy, or lymphedema noted Musculoskeletal:: No tenderness, or deformity noted, good range of motion, all extremities Integumentary:: No rashes, hives, or bruising noted, hair and nails, without abnormality Neurological:: Patient is alert, and oriented, cranial nerves, motor/sensory/ cerebellar, exams w/o gross deficits, to observation Psychiatric:: Patient exhibits, appropriate attention, emotion and affect Course Vital Signs Temperature 97.8 F 08/06/17 09:30 Pulse Rate 55 L 08/06/17 09:30 Respiratory Rate 16 08/06/17 09:30 Blood Pressure 113/53 08/06/17 09:30 Pulse Oximetry 95 08/06/17 09:30 Temperature 97.7 F 08/06/17 11:22 Pulse Rate 62 08/06/17 12:00 Respiratory Rate 17 08/06/17 12:00 Blood Pressure 114/56 08/06/17 12:00 Pulse Oximetry 97 08/06/17 12:00 Medical Decision Making - MDM Narrative Medical decision making narrative: Labs/imaging were discussed in detail with the patient and family and questions are answered. Patient is crossmatched for 2 units of packed red blood cells in the emergency department. Patient has black stool on rectal examination but it does not show heme-positive. Patient is given 1 L of normal saline intravenously while waiting for the blood to be prepared. Patient does not meet SIRS criteria in the emergency department. She has no source of infection in the emergency department. There is no current indication for antibiotic therapy in the emergency department. Patient's urinalysis is pending at the time of admission and will be followed by the hospitalist Dr. Brown who has accepted the patient to his service. No further orders. Accepting physician is in agreement with the current plan of management. Patient is admitted to the ICU in improved condition. Patient and family in agreement with the current plan of management. - Differential Diagnosis hyponatremia, anemia, metabolic process, abnl. labs - Lab Data Result diagrams: 08/06/17 09:53 08/06/17 09:53 Lab Results 08/06/17 08/06/17 08/06/17 Range/Units 09:53 09:53 09:53 WBC 12.6 H (4.5-11.0) T/MM3 RBC 1.69 L (4.00-5.20) M/MM3 Hgb 5.3 L* (12-16) GM/DL Hct 16.1 L* (36-46) % MCV 95.3 (80-100) UM3 MCH 31.4 (26-34) UUG MCHC 32.9 (31-37) GM/DL RDW Std Deviation 50.9 H (36.9-50.2) FL Plt Count 515 H (130-400) T/MM3 MPV 9.5 (9.4-12.4) UM3 Immature Gran % (Auto) Not performed Neut % (Auto) Not performed Lymph % (Auto) Not performed [place] % (Auto) Not performed Eos % (Auto) Not performed Baso % (Auto) Not performed Neut # (Auto) Not performed Lymph # (Auto) Not performed [place] # (Auto) Not performed Eos # (Auto) Not performed Baso # (Auto) Not performed Abs Immat Gran (auto) Not performed Neutrophils % (Manual) 60.0 (33-66) % Band Neutrophils % 14.0 H (0-6) % Lymphocytes % (Manual) 17.0 L (23-45) % Monocytes % (Manual) 9.0 (0-9.0) % Neutrophils # (Manual) 7.6 (1.8-7.7) T/MM3 Band Neutrophils # 1.8 T/MM3 Lymphocytes # (Manual) 2.1 (1-4.8) T/MM3 Monocytes # (Manual) 1.1 H (0-0.8) T/MM3 RBC Morph Comment Normal INR 1.20 (0.99-1.21) APTT 23.6 L (24-36) SEC Turbidity < 20 (0-20) Sodium 117 L* (134-144) MEQ/L Potassium 2.9 L* (3.6-5) MEQ/L Chloride 77 L (98-107) MEQ/L Carbon Dioxide 22 (22-30) MEQ/L Anion Gap 18 H (5-15) MEQ/L BUN 18.0 H (7-17) MG/DL Creatinine 1.2 (0.7-1.2) MG/DL GFR Calculation 45 BUN/Creatinine Ratio 15 (6-26) RATIO Glucose 105 (65-110) MG/DL Calculated Osmolality 229 L (261-280) MOSM/KG Calcium 9.0 (8.4-10.2) MG/DL Magnesium (1.6-2.3) MG/DL Total Bilirubin 0.80 (0.20-1.30) MG/DL Icterus Index < 2 (0-7) AST 45 H (14-36) U/L ALT 44 (9-52) U/L Alkaline Phosphatase 110 (38-126) U/L Troponin I < 0.012 (0-0.12) ng/ml Total Protein 6.9 (6.3-8.2) G/DL Albumin 3.9 (3.5-5.0) G/DL Globulin 3.0 (2.4-3.6) G/DL Albumin/Globulin Ratio 1.3 (1.1-2.2) RATIO Lipase (23-300) U/L Specimen Hemolysis < 15 (0-25) Blood Type Antibody Screen Crossmatch (AHG) 08/06/17 08/06/17 Range/Units 09:53 10:28 WBC (4.5-11.0) T/MM3 RBC (4.00-5.20) M/MM3 Hgb (12-16) GM/DL Hct (36-46) % MCV (80-100) UM3 MCH (26-34) UUG MCHC (31-37) GM/DL RDW Std Deviation (36.9-50.2) FL Plt Count (130-400) T/MM3 MPV (9.4-12.4) UM3 Immature Gran % (Auto) Neut % (Auto) Lymph % (Auto) [place] % (Auto) Eos % (Auto) Baso % (Auto) Neut # (Auto) Lymph # (Auto) [place] # (Auto) Eos # (Auto) Baso # (Auto) Abs Immat Gran (auto) Neutrophils % (Manual) (33-66) % Band Neutrophils % (0-6) % Lymphocytes % (Manual) (23-45) % Monocytes % (Manual) (0-9.0) % Neutrophils # (Manual) (1.8-7.7) T/MM3 Band Neutrophils # T/MM3 Lymphocytes # (Manual) (1-4.8) T/MM3 Monocytes # (Manual) (0-0.8) T/MM3 RBC Morph Comment INR (0.99-1.21) APTT (24-36) SEC Turbidity (0-20) Sodium (134-144) MEQ/L Potassium (3.6-5) MEQ/L Chloride (98-107) MEQ/L Carbon Dioxide (22-30) MEQ/L Anion Gap (5-15) MEQ/L BUN (7-17) MG/DL Creatinine (0.7-1.2) MG/DL GFR Calculation BUN/Creatinine Ratio (6-26) RATIO Glucose (65-110) MG/DL Calculated Osmolality (261-280) MOSM/KG Calcium (8.4-10.2) MG/DL Magnesium 1.6 (1.6-2.3) MG/DL Total Bilirubin (0.20-1.30) MG/DL Icterus Index (0-7) AST (14-36) U/L ALT (9-52) U/L Alkaline Phosphatase (38-126) U/L Troponin I (0-0.12) ng/ml Total Protein (6.3-8.2) G/DL Albumin (3.5-5.0) G/DL Globulin (2.4-3.6) G/DL Albumin/Globulin Ratio (1.1-2.2) RATIO Lipase 1221 H (23-300) U/L Specimen Hemolysis (0-25) Blood Type O Positive Antibody Screen Negative Crossmatch (AHG) See Detail - Radiology Data CXR - No acute processes. CT Head - No acute processes. - EKG Data EKG #1 EKG results narrative: Sinus bradycardia with first-degree AV block. 55 bpm. No STEMI. Nonspecific T -wave abnormality Critical Care Time Critical Care Time: Yes Total Critical Care Time: 47 Attestation: 47 minutes of critical care time was assessed to the patient due to complex medical decision-making, repeated assessment at the bedside, and potential for decompensation. Patient was transfused 2 units of packed red blood cells in the emergency department. Patient had a hemoglobin of 5.3. Patient also had a sodium of 117. Patient is admitted to the ICU for further evaluation and treatment. Critical care time was spent documenting the medical record, updating the family, treating the patient, and making telephone calls on the patient's behalf. Disposition Clinical Impression: Hyponatremia Anemia Qualifiers: Anemia type: unspecified type Qualified Code(s): D64.9 - Anemia, unspecified Disposition: 02 To [facility] [place] Acute Care Condition: Stable for Transport Time of Disposition: 10:30 (Admit. Dr. Brown. ) - Seen By: physician
--- OUTSIDE RECORDS SUMMARY | 2017-08-06 09:57 | External Medical Summary | Clinical Summary ---
:1950 Author Organization [facility] Address [address] [place] [address] Phone Care Team Providers Name Role Phone Unavailable Primary Care Provider Unavailable Source Comments Some departments are not documenting in the electronic medical record. If you do not see the information that you expected, contact Release of Information in the Health Information Management department at [phone] for further assistance in locating additional records.[facility] Allergies Active Allergy Reactions Severity Noted Date Comments Pregabalin EDEMA 01/09/2012 Current Medications Prescription Sig. Disp. Refills Start Date End Date Status meloxicam(+) (MOBIC) 7.5 mg Take 7.5 mg Active tablet by mouth daily. aspirin 81 mg chew tablet Take 81 mg by Active mouth daily. pyridoxine (VITAMIN B-6) 100 Take 100 mg Active mg tablet by mouth daily. alendronate (FOSAMAX) 70 mg Take 70 mg by Active tablet mouth every 7 days. Calcium Carbonate (TUMS Take 2 Tabs Active ULTRA) 400 mg (1,000 mg) Chew by mouth daily before lunch. gabapentin (NEURONTIN) 600 mg Take 600 mg Active tablet by mouth three times daily. cholecalciferol(+) (VITAMIN Take 1 Tab by Active D-3) 2,000 unit tablet mouth daily. Carboxymethylcellulose Sodium Place 1 Drop Active (REFRESH) 1 % Drop into or around eye(s) twice daily as needed. diphenhydrAMINE (BENADRYL) 25 Take 25 mg by Active mg capsule mouth every 6 hours as needed. potassium chloride (KLOR-CON) Take 20 mEq Active 20 mEq packet by mouth daily. furosemide (LASIX) 40 mg Take 40 mg by Active tablet mouth daily. oxyCODONE (ROXICODONE) 5 mg Take 1-3 Tabs 180 Tab 0 03/17/2012 Active tablet by mouth every 3 hours as needed for Pain. Active Problems Problem Noted Date Lumbar spinal stenosis 03/20/2012 Family History Medical History Relation Name Comments Heart Failure Father Arthritis-osteo Mother Stroke Mother Thyroid Disease Mother Relation Name Status Comments Father Mother Social History Tobacco Use Types Packs/Day Years Used Date Never Smoker Smokeless Tobacco: Never Used Alcohol Use Drinks/Week oz/Week Comments Yes 7 Standard drinks or equivalent 3.5 Sex Assigned at Date Recorded Not on file Last Filed Vital Signs Vital Sign Reading Time Taken Blood Pressure 136/77 03/17/2012 8:05 AM CDT Pulse 80 03/17/2012 12:20 PM CDT Temperature 37.1 C (98.7 F) 03/17/2012 8:05 AM CDT Respiratory Rate - - Oxygen Saturation 97% 03/17/2012 12:20 PM CDT Inhaled Oxygen Concentration - - Weight 74.5 kg (164 lb 3.9 oz) 03/04/2012 12:05 PM CDT Height 157.5 cm (5' 2") 03/04/2012 12:05 PM CDT Body Mass Index 30.04 03/04/2012 12:05 PM CDT Plan of Treatment Health Maintenance Due Date Last Done Comments HEPATITIS C SCREENING 1950 PHYSICAL (COMPREHENSIVE) EXAM 1956 PERTUSSIS VACCINE 1960 TETANUS VACCINE 1966 BREAST CANCER SCREENING 1989 COLORECTAL CANCER SCREENING 12/23/1999 SHINGLES VACCINE 2009 OSTEOPOROSIS SCREENING 2014 PREVNAR/PNEUMOVAX (#1) 2014 INFLUENZA VACCINE 04/16/2017
--- NOTE | 2017-08-06 10:21 | CT Scan Report ---
Indication: CHI PROCEDURE: CT head/brain wo con: Encounter: Initial Comparison: April 01, 2017 Technique: Axial CT images through the head were performed without contrast. Iterative Reconstruction dose reducing technique was utilized. FINDINGS: Mild generalized atrophy. The ventricles are of normal size, shape, and configuration for the patient's age. There is no evidence of acute intracranial hemorrhage, midline displacement, or mass effect. There are scattered areas of low attenuation in the white matter which most likely represent changes of chronic microvascular ischemia. The CT attenuation of the brain parenchyma is otherwise normal within the cerebellum, brain stem, and cerebral hemispheres. The tympanic cavities and mastoid air cells are free of appreciable disease. There are no definite fractures of the skull base, calvarium, or visualized portion of the midface. IMPRESSION: No CT evidence of acute traumatic intracranial injury. .
[2017-08-06] MEDS ORDERED: NS 1,000 ML IV ONE (10:24)
--- NOTE | 2017-08-06 10:24 | XRay Report ---
Indication: weakness PROCEDURE: XR chest 1V: Encounter: Initial Comparison: May 30, 2017 FINDINGS: The lungs are hypoinflated, but clear. There is no abnormal airspace opacity, pleural effusion or pneumothorax identified. The heart size, pulmonary vasculature and mediastinum are within normal limits. No significant skeletal abnormality is seen. IMPRESSION: No acute cardiopulmonary abnormality. .
[2017-08-06] MEDS ORDERED: ONDANSETRON 4 MG/2 ML INJECTION IVP PRN (11:20)
[2017-08-06 11:21] VITALS: BMI 30.3
[2017-08-06] MEDS: NS 1,000 ML IV SCH ×2 (11:35→22:42)
[2017-08-06] MEDS: NS FLUSH BAG 500ml IV PRN ×2 (11:36→14:33)
--- NOTE | 2017-08-06 11:52 | History & Physical Report ---
History of Present Illness Date: 08/06/17 Chief complaint: weakness, significant anemia and hyponatremia HPI: Patient is a 66-year-old female who presented to the emergency room at the request of her PCP, Dr. Leslie, due to hemoglobin of 5.3, potassium 2.9 and sodium of 117. Patient has had progressive weakness over the last month or more. She's had black stools for a week. Her reports they are "runny." She denies abdominal pain, but complains of a "knot" in her upper abdomen. She' s had "indigestion" which she states is new for her. She's been taking 2 Advil 4 -5 times a day per her for chronic hip pain. She also takes 2-3 [place] daily. She states she's had no appetite and has not been eating. She drinks 2 drinks per day of vodka and cranberry juice. She's had nausea and vomiting. She states that most mornings at least over the past 3-4 weeks or more she's vomited up her pills. Her reports she also vomits in the evenings, almost always when she takes her pills. She denies blood in the emesis. She states she's been taking some Pepto-Bismol for that past week. Patient was seen in the CCU. Her supplied most of the history as he reports she has had memory issues since August. He states she has been seen by a specialist in [place] (Dr Beyer) who specializes in "memory loss." He says that doctor has mentioned dementia, but has not said that is what she has for sure. He tells me patient has a brain MRI scheduled next week. Patient is alert and oriented x 3. In review of Dr. Beyer's notes from 07/10/17, her symptoms began in August when they were on the way to visit the patient's sister. Patient became ill, short of breath and she ended up in the emergency room and was diagnosed with transient global amnesia. had reported that she's never been the same since that time. She's had multiple falls. She has not driven since August. She was let go from her job in January because of problems with her memory. Review of Systems All systems PM: 10-point ROS was reviewed, no additional remarkable complaints except - Constitutional Constitutional: Present: headache(s) (06/25), weakness. Absent: increased appetite (pt c/o lack of appetite) - Gastrointestinal Gastrointestinal: Present: abdominal pain (epigastric), melena, nausea, vomiting - Genitourinary Genitourinary: Present: urinary frequency (q 2 hrs at night) - Musculoskeletal Musculoskeletal: Present: other (chronic hip pain L>R) - Neurological Neurological: Present: memory loss (short term memory loss since November per ) - Psychiatric Psychiatric: Present: anxiety PFSH Medical History Takotsubo cardiomyopathy Alcohol use Hyponatremia (Acute Medical) Headache Hypertension Iron deficiency anemia Congestive heart failure Neuropathy Low back pain Situs inversus Osteoporosis Surgical History: L hip hemiarthroplasty for fx secondary to fall followed by [facility] (2009), [facility] (2010), back surgery x 2, sinus (endoscopic) surgery, colonoscopy 09/01/2009 (Dr. Segura) Family History: Father- . CHF. Mother- . Multiple CVA's. - Social History Smoking status: Never smoker Substance use type: does not use Alcohol intake: current Alcohol intake frequency: other (patient reports she drinks 2 vodka/cranberry drinks daily. 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 Medications Home Medications Medication Instructions Recorded Confirmed Type Aspirin [Aspir 81] 81 mg PO DAILY #0 03/21/10 08/06/17 History Gabapentin 600 mg PO TID #0 03/21/10 08/06/17 History Alendronate [Fosamax] 70 mg PO WEEKLY #0 11/21/12 08/06/17 History Furosemide [Lasix] 60 mg PO DAILY #0 11/21/12 08/06/17 History Potassium Chloride [Klor-Con M20] 20 meq PO TID #0 11/21/12 08/06/17 History Amlodipine [Norvasc] 5 mg PO BID 04/01/17 08/06/17 History Cholecalciferol (Vitamin D3) 1,000 unit PO DAILY 04/01/17 08/06/17 History [Vitamin D3] Hydrocodone/APAP 5/325 [[place] 1 tab PO TID PRN 04/01/17 08/06/17 History 5/325] Losartan [Cozaar] 50 mg PO DAILY 04/01/17 08/06/17 History Citalopram [Celexa] 40 mg PO DAILY 08/06/17 08/06/17 History LORazepam [Ativan] 0.5 mg PO DAILY PRN 08/06/17 08/06/17 History Allergies Allergy/AdvReac Type Severity Reaction Status Date / Time pregabalin Allergy Unknown SWELLING Verified 08/06/17 09:39 IN LEGS Exam Vital Signs: Temperature 97.7 F 08/06/17 11:22 Pulse Rate 62 08/06/17 11:40 Respiratory Rate 14 08/06/17 11:17 Blood Pressure 116/53 08/06/17 11:17 Pulse Oximetry 94 08/06/17 11:22 Height/Weight/BMI: Height 1.57 m Weight 75.3 kg Body Mass Index 30.3 - Constitutional Present: no acute distress, well nourished, well developed, obese - Routine HEENT Exam Head: Present: normocephalic, abrasion (slight hematoma and scabbed area on R parietal scalp) Eye: Present: EOMI, PERRL. Absent: conjunctival icterus ENT: Present: mucous membranes moist (lips are dry), oropharynx clear - Routine Neck Exam Present: supple. Absent: lymphadenopathy, thyromegaly - Routine Respiratory Exam Present: CTA bilaterally. Absent: wheezes - Routine Cardiovascular Exam Present: RRR, S1, S2. Absent: murmur - Routine Abdominal Exam Present: soft, normoactive bowel sounds, tenderness (mild epigastric), non distended - Routine Extremities Exam Present: no edema, normal capillary refill - Routine Skin Exam Present: dry, warm - Routine Neurological Exam Present: alert, oriented X3, CN II-XII intact, normal speech. Absent: tremors - Routine Psychiatric Exam Present: normal affect, cooperative Comments: slow to answer at times - Additional findings Additional findings: Eric Lung: clear bilaterally, no distress. CV: regular MSE: awake alert, mild confusion. Results - Labs CBC & Chem 7: 08/06/17 09:53 08/06/17 09:53 Labs: Laboratory Tests 08/06/17 09:53 Total Bilirubin 0.80 AST 45 H ALT 44 Alkaline Phosphatase 110 Troponin I < 0.012 Total Protein 6.9 Albumin 3.9 Globulin 3.0 Albumin/Globulin Ratio 1.3 Laboratory Tests 08/06/17 12:00 Ur Collection Type Urine, clean catch Urine Color Yellow Urine Clarity Cloudy Urine pH 6.0 Ur Specific [place] 1.015 Urine Protein Negative Urine Glucose (UA) Negative Urine Ketones Negative Urine Occult Blood Negative Urine Nitrate Negative Urine Bilirubin Negative Urine Urobilinogen 0.2 Ur Leukocyte Esterase 3+ A Urine RBC 0-1 Urine WBC 20-30 H Ur Squamous Epith Cells 0-5 Urine Bacteria 3+ H Microbiology Results: Urine culture pending - Imaging and Cardiology CT scan - head Additional comments: Date of Exam: 08/06/17 Type of Exam: CT head/brain wo con Reason for Exam: CHI FINDINGS: Mild generalized atrophy. The ventricles are of normal size, shape, and configuration for the patient's age. There is no evidence of acute intracranial hemorrhage, midline displacement, or mass effect. There are scattered areas of low attenuation in the white matter which most likely represent changes of chronic microvascular ischemia. The CT attenuation of the brain parenchyma is otherwise normal within the cerebellum, brain stem, and cerebral hemispheres. The tympanic cavities and mastoid air cells are free of appreciable disease. There are no definite fractures of the skull base, calvarium, or visualized portion of the midface. IMPRESSION: No CT evidence of acute traumatic intracranial injury. Chest x-ray Additional comments: Date of Exam: 08/06/17 Type of Exam: XR chest 1V Reason for Exam: weakness FINDINGS: The lungs are hypoinflated, but clear. There is no abnormal airspace opacity, pleural effusion or pneumothorax identified. The heart size, pulmonary vasculature and mediastinum are within normal limits. No significant skeletal abnormality is seen. IMPRESSION: No acute cardiopulmonary abnormality. Assessment and Plan (1) Hyponatremia Current visit: Yes Status: Acute (2) Anemia Current visit: Yes Status: Acute (3) Hypokalemia Current visit: Yes Status: Acute Assessment and Plan: Assessment: Acute anemia - suspect blood loss UTI Hypokalemia (POA) Hyponatremia (POA) Epigastric pain - suspect alcoholic gastritis Thrombocytosis (POA) Leukocytosis (POA) Alcohol use Takotsubo cardiomyopathy Headache Hypertension Iron deficiency anemia Congestive heart failure Neuropathy Low back pain Situs inversus Osteoporosis Obesity with BMI 30.4 Plan: Admit to CCU, Dr. Reyes attending, for blood transfusion, close monitoring and further workup. Her stay is expected to exceed two overnights given the severity of her electrolyte disturbance and anemia. Dr. Hernandez consulted for EGD/colonoscopy given her anemia, epigastric pain and reported melena. Two units PRBC's typed and ordered to be given with a dose of IV Lasix to be given after the first unit is transfused. Post transfusion H&H's are reflexed. Check CBC in am. Protonix IV 40mg BID initiated for suspected GI bleed. Patient to be NPO. IVF's bolused in ER and NS continued at 100 mls/hr on admission. Give 40mEq bolus of IV potassium chloride. Recheck BMP later today. Serax 30mg QID for alcohol withdrawal, Ativan 1mg IV prn q 4 hrs for anxiety and breakthrough withdrawal sxs. Zofran prn nausea. Dilaudid prn pain. Iron studies and B12 levels pending. Richard inserted. UA +. Culture pending. Start Rocephin 1gm IV q 24 hrs for UTI. Initiate IV thiamine and folic acid due to chronic ETOH use. Hold all home medications until patient can take p.o. Will schedule daily IV Lasix given her CHF/cardiomyopathy SCD's for VTE prevention. Defer Lovenox at present given likely GI bleed. Patient wishes to be a FULL CODE. Patient's care to return to Dr. Leslie on discharge. Eric 08/06/17 [id number] Have independently interviewed and examined pt. Case discussed with ED provider and my PA. Care plan developed with my supervision; agree with above. Present to ED due to weakness and lab abnormalities. In process of outpatient evaluation for memory loss. Weakness progressive over week. Increasing nausea and vomiting for the last 4 weeks. Reports stools black. In ED, sodium decrease to 117 and hemoglobin decrease to 5.3 (was 12.9 in May of this year). Due to patient's significant anemia and hyponatremia, order for inpatient admission to [facility] made. Anticipate greater than 2 midnights of care. DVT Prophylaxis: SCD's GI Prophylaxis: Protonix Resuscitation Status: Full Code - Time spent with patient Time with patient PN: 70 minutes Hospital Course Summary Disclaimer: The visit summary below is not to be considered part of the above Progress Note. Hospital Course: Assessment: Acute anemia - suspect blood loss UTI Hypokalemia-POA Hyponatremia -POA Epigastric pain - suspect alcoholic gastritis Alcohol use Takotsubo cardiomyopathy Headache Hypertension Iron deficiency anemia Congestive heart failure Neuropathy Low back pain Situs inversus Osteoporosis 08/06/17 Hospital Admission - CCU Admit to CCU, Dr. Reyes attending, for blood transfusion, close monitoring and further workup. Her stay is expected to exceed two overnights given the severity of her electrolyte disturbance and anemia. Dr. Hernandez consulted for EGD/colonoscopy given her anemia, epigastric pain and reported melena. Two units PRBC's typed and ordered to be given with a dose of IV Lasix to be given after the first unit is transfused. Post transfusion H&H's are reflexed. Check CBC in am. Protonix IV 40mg BID initiated for suspected GI bleed. Patient to be NPO. IVF's bolused in ER and NS continued at 100 mls/hr. Give 40mEq bolus of IV potassium chloride. Recheck BMP later today. Serax 30mg QID for alcohol withdrawal, ativan 1mg IV prn q 4 hrs for anxiety and breakthrough withdrawal sxs. Zofran prn nausea. Dilaudid prn pain. Iron studies and B12 levels pending. Richard inserted. UA +. Culture pending. Start Rocephin 1gm IV q 24 hrs for UTI. Hold all home medications until patient can take p.o. Will schedule daily IV Lasix given her CHF/cardiomyopathy SCD's for VTE prevention. Defer Lovenox at present given likely GI bleed. Patient wishes to be a FULL CODE. Patient's care to return to Dr. Leslie on discharge.
[2017-08-06] MEDS ORDERED: FUROSEMIDE 20 MG/2 ML INJECTION IVP ONE (12:17)
[2017-08-06] MEDS: PANTOPRAZOLE 40 MG INJECTION IVP SCH ×2 (12:34→22:40)
[2017-08-06] MEDS: OXAZEPAM 30 MG CAPSULE PO SCH ×2 (12:34→18:08)
[2017-08-06] MEDS: LIDOCAINE 1% INJ 10 MG, POTASSIUM CHLORIDE INJ 10 MEQ in NS 100 ML IV SCH ×4 (14:33→20:08)
[2017-08-06] MEDS: CEFTRIAXONE 1 G in NS 100 ML IV SCH (16:46)
[2017-08-06] MEDS: FOLIC ACID 5 MG/ML INJECTION IVP SCH (16:47)
[2017-08-06] MEDS: THIAMINE 200mg/2ml INJECTION IVP SCH (16:49)
[2017-08-07] MEDS: OXAZEPAM 30 MG CAPSULE PO SCH ×4 (00:08→19:19)
[2017-08-07] MEDS: HYDROMORPHONE 2 MG/ML INJECTION IVP PRN ×3 (03:13→12:15)
[2017-08-07] MEDS: SALINE FLUSH 10ml SYRINGE IVF PRN (03:14)
[2017-08-07] MEDS: NS 1,000 ML IV SCH (07:11)
[2017-08-07] MEDS: PANTOPRAZOLE 40 MG INJECTION IVP SCH ×2 (08:13→20:40)
[2017-08-07] MEDS: FUROSEMIDE 20 MG/2 ML INJECTION IVP SCH (08:14)
[2017-08-07] MEDS: THIAMINE 200mg/2ml INJECTION IVP SCH (08:20)
[2017-08-07] MEDS: FOLIC ACID 5 MG/ML INJECTION IVP SCH (08:21)
[2017-08-07] MEDS: NS with KCL 20 mEq 1,000 ML IV SCH ×2 (10:11→20:05)
[2017-08-07] MEDS: CEFTRIAXONE 1 G in NS 100 ML IV SCH (14:11)
--- NOTE | 2017-08-07 14:22 | Anesthesia Preoperative Report ---
Anesthesia Preoperative Record - Date and Time Date: 08/07/17 Preoperative Diagnosis: anemia Proposed Procedure: EGD NPO Since Date: 08/06/17 NPO Since Time: 22:00 Allergies/Adverse Reactions: Allergies Allergy/AdvReac Type Severity Reaction Status Date / Time pregabalin Allergy Unknown SWELLING Verified 08/06/17 09:39 IN LEGS - Vital Signs Vital Signs: Temperature 98.4 F 08/07/17 11:00 Pulse Rate 58 L 08/07/17 12:00 Respiratory Rate 12 08/07/17 11:00 Blood Pressure 104/53 08/07/17 11:00 Pulse Oximetry 96 08/07/17 11:00 Height and Weight: Height 5 ft 2 in Weight 76.3 kg Body Mass Index 30.3 - Medications Inpatient Medications: Current Medications Folic Acid (Folate) 1 mg IVP DAILY [facility] Last Admin: 08/07/17 08:21 Dose: 1 mg Furosemide (Lasix) 20 mg IVP DAILY [facility] Last Admin: 08/07/17 08:14 Dose: 20 mg Hydromorphone HCl (Dilaudid) 0.5 mg IVP Q3H PRN PRN Reason: Pain Last Admin: 08/07/17 12:15 Dose: 0.5 mg Ceftriaxone Sodium 1 g/ Sodium (Chloride) 100 mls @ 200 mls/hr IV Q24H [facility] Last Admin: 08/07/17 14:11 Dose: 200 mls/hr Potassium Chloride/Sodium Chloride (Ns With Kcl 20 Meq) 1,000 mls @ 75 mls/hr IV .[id number] [facility] Last Infusion: 08/07/17 11:00 Dose: 75 mls/hr Lorazepam (Ativan Inj) 1 mg IVP Q4H PRN Ondansetron HCl (Zofran) 4 mg IVP Q6H PRN PRN Reason: Nausea Oxazepam (Serax) 30 mg PO Q6H [facility] Last Admin: 08/07/17 06:29 Dose: 30 mg Pantoprazole Sodium (Protonix Iv) 40 mg IVP BID [facility] Last Admin: 08/07/17 08:13 Dose: 40 mg Sodium Chloride (Iv Flush) 10 - 80 ml IVF PRN PRN PRN Reason: Flushing Last Admin: 08/07/17 03:14 Dose: 10 ml Sodium Chloride (Normal Saline) 500 ml IV PRN PRN Last Admin: 08/06/17 14:33 Dose: 500 ml Thiamine HCl (Vitamin B-1) 100 mg IVP DAILY [facility] Last Admin: 08/07/17 08:20 Dose: 100 mg Home Medications: Home Medications Medication Instructions Recorded Confirmed Type Aspirin [Aspir 81] 81 mg PO DAILY #0 03/21/10 08/06/17 History Gabapentin 600 mg PO TID #0 03/21/10 08/06/17 History Alendronate [Fosamax] 70 mg PO WEEKLY #0 11/21/12 08/06/17 History Furosemide [Lasix] 60 mg PO DAILY #0 11/21/12 08/06/17 History Potassium Chloride [Klor-Con M20] 20 meq PO TID #0 11/21/12 08/06/17 History Amlodipine [Norvasc] 5 mg PO BID 04/01/17 08/06/17 History Cholecalciferol (Vitamin D3) 1,000 unit PO DAILY 04/01/17 08/06/17 History [Vitamin D3] Hydrocodone/APAP 5/325 [[place] 1 tab PO TID PRN 04/01/17 08/06/17 History 5/325] Losartan [Cozaar] 50 mg PO DAILY 04/01/17 08/06/17 History Citalopram [Celexa] 40 mg PO DAILY 08/06/17 08/06/17 History LORazepam [Ativan] 0.5 mg PO DAILY PRN 08/06/17 08/06/17 History Is Patient on Beta Kamran?: No - Medical History Respiratory: Reports: Dyspnea (CHRONIC) DENIES: Asthma, Bronchitis, Chronic Obstructive Pulmonary Disease (COPD), Orthopnea, Pulmonary Embolism, Pneumonia, Upper Respiratory Infection, Pulmonary Edema, Sleep Apnea, Tuberculosis, Other Cardiovascular: Reports: Hypertension DENIES: Abnormal EKG, Angina, Arrhythmia, Congestive Heart Failure, Coronary Artery Disease, Heart Murmur, Hypotension, High Cholesterol, Myocardial Infarction, Rheumatic Fever, Valvular Heart Disease, Other Gastrointestional: Reports: Nausea or Vomiting Present, Gastrointestinal Bleeding DENIES: Obstructive Bowel, Hepatitis, Cirrhosis, Gastroesophageal Reflux Disease, Hiatal Hernia, Ulcer, Morbid Obesity, Other Neuro/Musculoskeletal: Reports: HX.MS.OSAR, Back Problems (BACK SURGERY X2), Syncope (frequent recent falling/passing out) Renal/Endocrine: DENIES: Diabetes Mellitus Type 1, Diabetes Mellitus Type 2, Renal Failure, Dialysis, Thyroid Disease, Weight Loss, Weight Gain, Other Other History: Reports: Blood Transfusions DENIES: Anesthesia Reactions, Now, Chemotherapy, Cancer, Hemophilia , Malignant Hyperthermia, Sickle Cell Disease, Other - Surgical History HEENT Surgeries: Reports: Nose Surgery (SINUS SURGERY) Cardiac Surgeries/Treatments: Reports: Cardiac Catheterization (NO STENTS) Respiratory Surgery/Treatments: DENIES: BiPAP Use, CPAP Use GI Surgery/Treatments: Reports: Colonoscopy Musculoskeletal Surgery/Tx: Reports: Total Hip Replacement (bilateral), Other ( back surgery) Reproductive Surgery/Treatment: DENIES: Hysterectomy, Tubal Ligation Hx Family Anesthesia Reaction: No History of Motion Sickness: No - Social History Smoking Status: Never smoker Hx Chewing Tobacco Use: No Second Hand Exposure: No Substance Use Type: does not use Alcohol Intake: current Alcohol Intake Frequency: other (patient reports she drinks 2 vodka/cranberry drinks daily. States she uses "a few jiggers full" of vodka per drink) - Pertinent Findings Laboratory: CBC and BMP 08/07/17 13:06 08/07/17 13:06 BMP 08/06/17 08/07/17 08/07/17 21:56 05:19 13:06 Sodium 126 L D 130 L 132 L Potassium 3.5 L D 3.4 L 3.1 L Chloride 88 L D 94 L D 98 Carbon Dioxide 24 26 25 BUN 19.0 H 18.0 H 16.0 Creatinine 1.0 D 0.9 0.8 Glucose 89 91 91 Calcium 8.4 8.4 8.5 EKG: Sinus Rhythm - Physical Exam Respiratory Exam: Present: lungs clear, bilateral breath sounds equal Cardiovascular Exam: Present: regular rate and rhythm, no murmur - Airway Assessment Mallampati Score: III TMD: 2 Fingerbreadths Neck Extension: fair Overall Assessment: may be difficult mask vent, may be difficult intubation - ASA ASA Score: 3 - Plan Anesthesia: General TIVA - Discussion Discussion: Discussed risks/options/alternatives of anesthesia and questions answered. Patient consents. Nursing pain assessment noted. Present for Discussion: spouse Attestation Statement: Prior to the delivery of any anesthetic medication, I examined the patient, developed the plan, obtained the patient's consent and discussed the risk and benefits of the procedure with the patient/guardian. - Additional Information Seen by Anesthesia: Yes
[2017-08-07] MEDS ORDERED: PROPOFOL 20 ML ONE (14:32)
[2017-08-07] MEDS ORDERED: ALFENTANIL 1000mcg/2ml INJECTION IVP ONE (14:32)
[2017-08-07] MEDS ORDERED: LIDOCAINE 2% (100mg/5mL) PF 5ml vl ONE (14:32)
--- NOTE | 2017-08-07 15:27 | General Surgery Procedure Note ---
Date of Procedure: 08/07/17 Surgeon: David Anesthesia: General TIVA ASA Score: 3 Postoperative Diagnosis: Gastritis with ulcerations including one large ulcer in the antrum (no active bleeding), duodenitis with ulcerations (no active bleeding) Procedure: EGD with bxs
--- NOTE | 2017-08-07 16:41 | Progress Note ---
- Date 08/07/17 Subjective: F/U: Severe anemia Doing okay this evening. Tired and groggy. Tolerated EGD. Denies ab pain or nausea. Feels hungry-wants food. Breathing well. Nursing reports not stools. at bedside with patient and case and findings discussed with him. Objective Vital signs: Temperature 98.2 F 08/07/17 15:12 Pulse Rate 50 L 08/07/17 16:00 Respiratory Rate 14 08/07/17 14:59 Blood Pressure 96/55 08/07/17 14:59 Pulse Oximetry 97 08/07/17 14:59 Height/Weight/BMI: Height 1.57 m Weight 76.3 kg Body Mass Index 30.3 - Constitutional Present: well nourished, well developed, obese, somnolent - Routine HEENT Exam Head: Present: normocephalic, atraumatic Eye: Present: EOMI, PERRL ENT: Present: mucous membranes moist - Routine Respiratory Exam Present: decreased breath sounds. Absent: rales, respiratory distress, rhonchi , wheezes, crackles - Routine Cardiovascular Exam Present: no murmur, bradycardia (Regular ) - Routine Abdominal Exam Present: soft, normoactive bowel sounds, non distended, non tender. Absent: rebound, guarding - Routine Extremities Exam Present: no edema, pulses intact. Absent: clubbing, edema Comments: SCD in place - Routine Musculoskeletal Exam Musculoskeletal: Present: no clubbing or cyanosis - Routine Skin Exam Present: dry, warm - Routine Neurological Exam Present: moving all extremities, vision grossly intact, hearing grossly intact. Absent: motor deficit - Routine Psychiatric Exam Present: cooperative Comments: Groggy Results - Labs CBC & Chem 7: 08/07/17 13:06 08/07/17 13:06 Microbiology Results: Microbiology 08/06/17 12:00 Urine, Voided (Cc/notcc) Urine Culture - Preliminary Escherichia coli Assessment and Plan (1) Hyponatremia Current visit: Yes Status: Acute (2) Anemia Current visit: Yes Status: Acute (3) Hypokalemia Current visit: Yes Status: Acute Assessment and Plan: Assessment Acute anemia - suspect blood loss Large gastric ulcer seen on EGD Duodenitis UTI - E coli growing Hypokalemia (POA) Hyponatremia (POA) Epigastric pain - suspect alcoholic gastritis Thrombocytosis (POA) Leukocytosis (POA) Elevated lipase - gastritis vs ETOHic pancreatitis Alcohol use Takotsubo cardiomyopathy Headache Hypertension Iron deficiency anemia Congestive heart failure - diastolic Neuropathy Low back pain Osteoporosis Obesity with BMI 30.4 Plan EGD revealed large gastric ulcer and duodenitis - no active bleeding noted. Continue with Protonix BID and start oral carafate ac meals and at hs. IVF changed to NS with 20 KCl at 75 cc/hr. Sodium 132 with potassium 3.4 on am lab check. HGB with improvement to 7.3 post 2 units pRBC, 7.1 on afternoon recheck. Iron stores normal. B12 level normal. Need continued monitoring of hemoglobin - possible repeat transfusion base on lab. Diet advanced to clear liquids - advised caution with oral intake. Recheck CMP, Mg, CBC and Lipase in am. Will transfer patient to medical floor on tele for continuation of care. Case discussed with Dr Hernandez this am as well as this afternoon post EGD. Case discussed with CCU nursing this am and afternoon. Did see patient this am and afternoon. Time spent with patient care 35 minutes. DVT Prophylaxis: SCD's GI Prophylaxis: Protonix Resuscitation Status: Full Code Hospital Course Summary Disclaimer: The visit summary below is not to be considered part of the above Progress Note. Hospital Course: Assessment: Acute anemia - suspect blood loss UTI Hypokalemia-POA Hyponatremia -POA Epigastric pain - suspect alcoholic gastritis Alcohol use Takotsubo cardiomyopathy Headache Hypertension Iron deficiency anemia Congestive heart failure Neuropathy Low back pain Situs inversus Osteoporosis 08/06/17 Hospital Admission - CCU Admit to CCU, Dr. Reyes attending, for blood transfusion, close monitoring and further workup. Her stay is expected to exceed two overnights given the severity of her electrolyte disturbance and anemia. Dr. Hernandez consulted for EGD/colonoscopy given her anemia, epigastric pain and reported melena. Two units PRBC's typed and ordered to be given with a dose of IV Lasix to be given after the first unit is transfused. Post transfusion H&H's are reflexed. Check CBC in am. Protonix IV 40mg BID initiated for suspected GI bleed. Patient to be NPO. IVF's bolused in ER and NS continued at 100 mls/hr. Give 40mEq bolus of IV potassium chloride. Recheck BMP later today. Serax 30mg QID for alcohol withdrawal, ativan 1mg IV prn q 4 hrs for anxiety and breakthrough withdrawal sxs. Zofran prn nausea. Dilaudid prn pain. Iron studies and B12 levels pending. Richard inserted. UA +. Culture pending. Start Rocephin 1gm IV q 24 hrs for UTI. Hold all home medications until patient can take p.o. Will schedule daily IV Lasix given her CHF/cardiomyopathy SCD's for VTE prevention. Defer Lovenox at present given likely GI bleed. Patient wishes to be a FULL CODE. Patient's care to return to Dr. Leslie on discharge. 08/07/17 OP DAY - EGD with Bx. EGD revealed large gastric ulcer and duodenitis - no active bleeding noted. Continue with Protonix BID and start oral carafate ac meals and at hs. IVF changed to NS with 20 KCl at 75 cc/hr. Sodium 132 with potassium 3.4 on am lab check. HGB with improvement to 7.3 post 2 units pRBC, 7.1 on afternoon recheck. Iron stores normal. B12 level normal. Need continued monitoring of hemoglobin - possible repeat transfusion base on lab. Diet advanced to clear liquids - advised caution with oral intake. Recheck CMP, Mg, CBC and Lipase in am. Will transfer patient to medical floor on tele for continuation of care.
[2017-08-07] MEDS: SUCRALFATE 1gm/10ml ORAL LIQUID PO SCH ×2 (17:20→20:42)
--- NOTE | 2017-08-07 17:56 | Consultation ---
DATE OF CONSULTATION 08/07/2017 CONSULTING PHYSICIAN Bashir Hernandez MD REQUESTING PROVIDE ONUR Calderon REASON FOR CONSULTATION Anemias, black stools, suspect alcoholic gastritis. IMPRESSION 1. Melena. 2. Alcohol abuse. 3. Daily use of Aleve. 4. Hyponatremia - improving. RECOMMENDATION 1. I do think that Thao's source of melena is most likely from an upper GI source. To investigate this I think she needs an EGD. 2. With her electrolyte abnormalities I would like to avoid the bowel preparation that would be necessary for colonoscopy. If any etiology for her melena is not discovered with an EGD, then she may need bowel prep and a colonoscopy. She is still within ten years of her last colonoscopy. 3. Continue PPI. 4. Avoid anti-inflammatories. HISTORY OF PRESENT ILLNESS Thao is fairly sleepy so history is obtained from the patient's chart and her who was present in the room. The patient saw Dr. Leslie on 2016. This was due to black stools that she had been having and weakness along with her level of pain. Yesterday the patient was contacted when her lab results came back with a low hemoglobin of 5.9. Her hemoglobin had been 12.9 in May. She was admitted under the hospitalist service. Thao's said that she has been complaining of a knot in the epigastric region. She has also been having more nausea and vomiting lately. Over the last several days she has had vomiting with oral intake. She last ate any solids on the evening of 08/05/2017. She had eaten one-half of a hamburger sheela, some macaroni and cheese, and a small amount of green beans. The patient has been drinking mixed drinks (cranberry juice and vodka) more frequently since December or January. She will have drinks even in the middle of the night. Her suspects that she drinks about five drinks per day but he is not at home or awake when she is consuming all of the beverages. She has not been keeping pills down and vomits her pills up about nine out of ten times she tries to take them recently. The patient had been complaining to her of pain in the hips, and the back of her legs related to back problems. She has been taking eight to ten Aleve tablets daily for the last month. She also is using three prescribed hydrocodone tablets daily. PAST MEDICAL HISTORY 1. Hypertension 2. Hypercholesterolemia. 3. Alcohol use. 4. Chronic back pain. 5. Osteoporosis. PAST SURGICAL HISTORY 1. Laminectomy - 2000. 2. Spinal fusion - 2007. 3. Colonoscopy - 09/01/[address] Segura. Endoscopy revealed moderate sigmoid diverticulosis. Repeat colonoscopy was recommended in ten years. 4. Left femoral head replacement - 03/22/[address] Rodriguez. 5. Right total hip replacement - 01/02/[address] Rodriguez. 6. Spinal fusion - 03/13/2012. 7. Conversion of left femoral head replacement to left total hip placement - by Dr. Rodriguez. ALLERGIES Lyrica. MEDICATIONS Reviewed - see hospital MAR. She is on Protonix b.i.d. SOCIAL HISTORY The patient is to her , Jose. She is a never-smoker. She does drink mixed drinks daily. She is retired. Her primary care physician is Dr. Leslie. Her engraver tender is Dr. Hightower. FAMILY HISTORY Father ( - congestive heart failure. Mother () - multiple CVAs. REVIEW OF SYSTEMS Ten-point review of systems was reviewed with the patient's due to the patient's level of alertness. Review of systems was negative except for History of Present Illness and the following: GENERAL: She has had weakness. NEUROLOGIC: She has had short-term memory loss since she had a seizure in November. She is undergoing outpatient workup currently for this issue. PHYSICAL EXAMINATION VITAL SIGNS: Temperature 98.4. P52. Blood pressure 117/56. Respiratory rate 19. Oxygen saturation 96% on room air. GENERAL: The patient is resting in bed. She is in no acute distress. She does awaken to voice. HEENT: Sclerae clear. Extraocular muscles intact. NECK: Supple with a midline trachea. No lymphadenopathy or thyromegaly are noted. HEART: Regular rate and rhythm. LUNGS: Clear to auscultation bilaterally. ABDOMEN: Soft, nontender, nondistended, obese. No masses, fluid, organomegaly , guarding or rebound are noted. EXTREMITIES: No clubbing, cyanosis or edema. NEUROLOGIC: Cranial nerves II-XII are grossly intact. PSYCHIATRIC: Normal mood and affect. LABORATORY DATA Hemoglobin on 08/06/2017 was 5.3. Most recent hemoglobin this morning was 7.1. Sodium has improved to 130 from 117 on admission. PATIENT EDUCATION The details, risks and benefits of esophagogastroduodenoscopy were discussed with the patient's . The discussion included but was not limited to bleeding, perforation requiring repair, and complications of anesthesia. He voiced understanding and did wish to proceed with upper endoscopy later today. Thank you for allowing me to participate in Thao's care. NGUYEN
--- NOTE | 2017-08-07 18:47 | Operative Note ---
DATE OF OPERATION 08/07/2017 SURGEON Bashir Hernandez MD PREOPERATIVE DIAGNOSIS Melena. POSTOPERATIVE DIAGNOSES 1. Severe antral gastritis with ulcerations including one large antral ulcer - no active bleeding. 2. Moderate duodenitis with mild ulcerations but no active bleeding. PROCEDURE Esophagogastroduodenoscopy with antral biopsy for KEYSHAWN testing and antral biopsies and duodenal biopsies for histology. ANESTHESIA TIVA ASA Class 3 INDICATIONS The patient is a 66-year-old female who was admitted to hospital with a low hemoglobin and a history of melanotic stools. She does have a history of recent significant alcohol use and daily use of Aleve. Upper endoscopy had been discussed with her earlier today and it was felt that she needed an EGD performed. FINDINGS The esophagus and proximal stomach were normal. The antrum showed multiple ulcerations including one fairly significant ulceration along the posterior aspect of the distal stomach. There were other smaller ulcerations in the antrum and prepyloric region. The duodenum also showed inflammation with small areas of ulceration. DESCRIPTION OF PROCEDURE After informed consent was obtained the patient was taken to the endoscopy suite and placed in a left lateral decubitus position. IV anesthesia was administered by the anesthesia team. A bite block was inserted followed by an Olympus video gastroscope. The gastroscope was advanced down to the second portion of the duodenum under direct vision. The scope was slowly withdrawn, examining the mucosa circumferentially. The scope was retroflexed in the stomach to examine the cardiac and fundic portions of the stomach. With the significant ulcerations noted, a biopsy was taken of the antrum for a KEYSHAWN test. The biopsy forceps were then utilized to biopsy multiple areas of the antrum including the edges of the larger ulcer and a smaller ulcer. The scope was reintroduced into the duodenal bulb and biopsies were taken. All of the biopsy sites were inspected and were found to be hemostatic. The carbon dioxide insufflation was evacuated and the scope was withdrawn into the esophagus. The esophagus was examined circumferentially as the scope was removed. RECOMMENDATIONS 1. Continue b.i.d. PPI. 2. Avoid alcohol use. 3. Avoid NSAIDs use. 4. Begin Carafate slurry for two months. The patient's felt that she would not be able to take a large pill. . 5. Begin clear liquid diet and follow hemoglobin. 6. Consider repeat colonoscopy in 2019. [facility]
[2017-08-08] MEDS: HYDROMORPHONE 2 MG/ML INJECTION IVP PRN ×2 (00:49→05:29)
[2017-08-08] MEDS: OXAZEPAM 30 MG CAPSULE PO SCH ×2 (00:50→05:31)
[2017-08-08] MEDS: SUCRALFATE 1gm/10ml ORAL LIQUID PO SCH ×4 (05:32→20:18)
[2017-08-08] MEDS: PANTOPRAZOLE 40 MG INJECTION IVP SCH ×2 (08:50→20:16)
[2017-08-08] MEDS: THIAMINE 200mg/2ml INJECTION IVP SCH (08:54)
[2017-08-08] MEDS: FOLIC ACID 5 MG/ML INJECTION IVP SCH (08:55)
[2017-08-08] MEDS: FUROSEMIDE 20 MG/2 ML INJECTION IVP SCH (08:58)
[2017-08-08] MEDS: NS with KCL 20 mEq 1,000 ML IV SCH (09:03)
[2017-08-08] MEDS ORDERED: BISACODYL 10 MG SUPPOSITORY RECTALLY PRN (09:53)
[2017-08-08] MEDS ORDERED: POLYETHYL GLYCOL 3350 17gm PACKET PO PRN (09:53)
--- NOTE | 2017-08-08 10:44 | Progress Note ---
- Date 08/08/17 Subjective: F/U: Severe anemia Doing well this morning. Sleepy. Denies abdominal symptoms. No ab pain, cramping , fullness, nausea, or bloating. Tolerating clear liquids (but not liking how they taste). Hungry-wants real food. Passing flatus, no stool. Breathing well. No chest pain. Tolerating dykes cath. No f/c. Objective Vital signs: Temperature 98.2 F 08/08/17 07:42 Pulse Rate 52 L 08/08/17 09:38 Respiratory Rate 16 08/08/17 07:42 Blood Pressure 125/65 08/08/17 07:42 Pulse Oximetry 96 08/08/17 07:42 Height/Weight/BMI: Height 1.57 m Weight 77 kg Body Mass Index 30.3 - Constitutional Present: well nourished, well developed, obese, cooperative - Routine HEENT Exam Head: Present: normocephalic, atraumatic Eye: Present: EOMI, PERRL ENT: Present: mucous membranes moist - Routine Respiratory Exam Present: CTA bilaterally. Absent: rales, respiratory distress, rhonchi, wheezes , crackles - Routine Cardiovascular Exam Present: no murmur, bradycardia - Routine Abdominal Exam Present: soft, normoactive bowel sounds, non distended, non tender - Routine Extremities Exam Present: no edema, pulses intact. Absent: cyanosis, clubbing - Routine Musculoskeletal Exam Musculoskeletal: Present: no clubbing or cyanosis, normal strength - Routine Skin Exam Present: dry, warm - Routine Neurological Exam Present: alert, CN II-XII intact, moving all extremities, vision grossly intact , hearing grossly intact, normal speech. Absent: motor deficit, altered mental status - Routine Psychiatric Exam Present: normal affect, normal thought process, cooperative Results - Labs CBC & Chem 7: 08/08/17 04:12 08/08/17 04:12 Microbiology Results: Microbiology 08/06/17 12:00 Urine, Voided (Cc/notcc) Urine Culture - Final Escherichia coli Assessment and Plan (1) Hyponatremia Current visit: Yes Status: Acute (2) Anemia Current visit: Yes Status: Acute (3) Hypokalemia Current visit: Yes Status: Acute Assessment and Plan: Assessment Acute anemia - suspect blood loss Large gastric ulcer seen on EGD Severe antral gastritis Duodenitis with mild ulcerations UTI - E coli growing Hypokalemia (POA) Hyponatremia (POA) Epigastric pain - suspect alcoholic gastritis Thrombocytosis (POA) Leukocytosis (POA) Elevated lipase - gastritis vs ETOHic pancreatitis Alcohol use Takotsubo cardiomyopathy Headache Hypertension Iron deficiency anemia Congestive heart failure - diastolic Neuropathy Low back pain Osteoporosis Obesity with BMI 30.4 Plan Discussed EGD findings and treatment plan with patient again, as she was groggy yesterday post EGD. Hemoglobin 7.2 this am. Sodium 132. Potassium 3.5. Magnesium 1.6. Will stop IVF. Advance to full liquids and monitor symptoms. Advised caution with oral intake. Continue IV Protonic and oral Carafate for ulcer healing. Will give oral MagOx today as noon as Mg decreased to 1.6. Decrease Serax to 15mg TID. Change Thiamine and folic acid to oral. D/C Dykes. Increase activities - nursing to ambulate QID in room/halls. Continue Rocephin for urinary coverage. E coli is sensitive to Rocephin. Restart home Neurontin and Celexa. Hold Coreg due to bradycardia. Will hold Cozaar as BP low normal. Recheck H/H this afternoon. Repeat CBC in am due to anemia. Will recheck BMP and Mg due to hypokalemia/ hyponatremia. Case discussed with Sx and patient's . Time spent with patient care 35 minutes. DVT Prophylaxis: SCD's GI Prophylaxis: Protonix Resuscitation Status: Full Code Hospital Course Summary Disclaimer: The visit summary below is not to be considered part of the above Progress Note. Hospital Course: Assessment: Acute anemia - suspect blood loss UTI Hypokalemia-POA Hyponatremia -POA Epigastric pain - suspect alcoholic gastritis Alcohol use Takotsubo cardiomyopathy Headache Hypertension Iron deficiency anemia Congestive heart failure Neuropathy Low back pain Situs inversus Osteoporosis 08/06/17 Hospital Admission - CCU Admit to CCU, Dr. Reyes attending, for blood transfusion, close monitoring and further workup. Her stay is expected to exceed two overnights given the severity of her electrolyte disturbance and anemia. Dr. Hernandez consulted for EGD/colonoscopy given her anemia, epigastric pain and reported melena. Two units PRBC's typed and ordered to be given with a dose of IV Lasix to be given after the first unit is transfused. Post transfusion H&H's are reflexed. Check CBC in am. Protonix IV 40mg BID initiated for suspected GI bleed. Patient to be NPO. IVF's bolused in ER and NS continued at 100 mls/hr. Give 40mEq bolus of IV potassium chloride. Recheck BMP later today. Serax 30mg QID for alcohol withdrawal, ativan 1mg IV prn q 4 hrs for anxiety and breakthrough withdrawal sxs. Zofran prn nausea. Dilaudid prn pain. Iron studies and B12 levels pending. Dykes inserted. UA +. Culture pending. Start Rocephin 1gm IV q 24 hrs for UTI. Hold all home medications until patient can take p.o. Will schedule daily IV Lasix given her CHF/cardiomyopathy SCD's for VTE prevention. Defer Lovenox at present given likely GI bleed. Patient wishes to be a FULL CODE. Patient's care to return to Dr. Leslie on discharge. 08/07/17 OP DAY - EGD with Bx. EGD revealed large gastric ulcer and duodenitis - no active bleeding noted. Continue with Protonix BID and start oral carafate ac meals and at hs. IVF changed to NS with 20 KCl at 75 cc/hr. Sodium 132 with potassium 3.4 on am lab check. HGB with improvement to 7.3 post 2 units pRBC, 7.1 on afternoon recheck. Iron stores normal. B12 level normal. Need continued monitoring of hemoglobin - possible repeat transfusion base on lab. Diet advanced to clear liquids - advised caution with oral intake. Recheck CMP, Mg, CBC and Lipase in am. Will transfer patient to medical floor on tele for continuation of care. 08/08/17 Discussed EGD findings and treatment plan with patient again, as she was groggy yesterday post EGD. Hemoglobin 7.2 this am. Sodium 132. Potassium 3.5. Magnesium 1.6. Will stop IVF. Advance to full liquids and monitor symptoms. Advised caution with oral intake. Continue IV Protonic and oral Carafate for ulcer healing. Will give oral MagOx today as noon as Mg decreased to 1.6. Decrease Serax to 15mg TID. Change Thiamine and folic acid to oral. Will d/c Dykes. Increase activities - nursing to ambulate QID in room/halls. Continue Rocephin for urinary coverage. E coli is sensitive to Rocephin. Restart home Neurontin and Celexa. Hold Coreg due to bradycardia. Will hold Cozaar as BP low normal. Recheck H/H this afternoon. Repeat CBC in am due to anemia. Will recheck BMP and Mg due to hypokalemia/ hyponatremia.
[2017-08-08] MEDS ORDERED: NS with KCL 20 mEq 1,000 ML IV SCH (10:45)
[2017-08-08] MEDS: CITALOPRAM 40 MG TABLET PO SCH (10:51)
[2017-08-08] MEDS ORDERED: FALL RISK - PHARMACY CONSULT XX ONE (11:17)
--- NOTE | 2017-08-08 11:55 | Progress Note ---
DATE OF VISIT 08/08/2017 REASON FOR VISIT Follow GI bleed. SUBJECTIVE Thao says that she is feeling fairly well this morning. She is disappointed that she cannot have regular food on . OBJECTIVE VITAL SIGNS: Afebrile with stable vitals on room air. GENERAL: The patient is awake, alert, in no acute distress. ABDOMEN: Soft, obese, nontender, nondistended. LABORATORY DATA Hemoglobin this morning is 7.2. IMPRESSION 1. Severe antral gastritis with ulcerations and moderate duodenitis with ulcerations - no evidence of active bleeding. 2. Acute blood loss anemia secondary to GI losses. PLAN 1. Continue Protonix and Carafate. 2. Continue liquid diet today. 3. Continue to follow hemoglobin. MTDD
[2017-08-08] MEDS: ACETAMINOPHEN 325 MG TABLET PO PRN (12:05)
[2017-08-08] MEDS ORDERED: MAGNESIUM OXIDE 400 MG TABLET PO ONE (12:30)
[2017-08-08] MEDS: HYDROCODONE/APAP 5mg/325mg TABLET PO PRN ×2 (13:01→20:15)
[2017-08-08] MEDS: DiphenhydrAMINE 25 MG CAPSULE PO PRN ×2 (14:40→21:03)
[2017-08-08] MEDS: OXAZEPAM 15 MG CAPSULE PO SCH ×2 (14:40→20:16)
[2017-08-08] MEDS: GABAPENTIN 600 MG TABLET PO SCH ×2 (14:40→20:16)
[2017-08-08] MEDS: CEFTRIAXONE 1 G in NS 100 ML IV SCH (14:42)
[2017-08-08] MEDS: SALINE FLUSH 10ml SYRINGE IVF PRN (20:15)
[2017-08-09] MEDS: HYDROCODONE/APAP 5mg/325mg TABLET PO PRN ×3 (04:17→20:41)
[2017-08-09] MEDS: SUCRALFATE 1gm/10ml ORAL LIQUID PO SCH ×4 (05:46→20:36)
[2017-08-09] MEDS: SALINE FLUSH 10ml SYRINGE IVF PRN (07:14)
[2017-08-09] MEDS: HYDROMORPHONE 2 MG/ML INJECTION IVP PRN (07:15)
[2017-08-09] MEDS: CITALOPRAM 40 MG TABLET PO SCH (08:44)
[2017-08-09] MEDS: GABAPENTIN 600 MG TABLET PO SCH ×3 (08:44→20:36)
[2017-08-09] MEDS: PANTOPRAZOLE 40 MG INJECTION IVP SCH ×2 (08:44→20:36)
[2017-08-09] MEDS: FOLIC ACID 1 MG TABLET PO SCH (08:45)
[2017-08-09] MEDS: OXAZEPAM 15 MG CAPSULE PO SCH ×2 (08:45→15:11)
[2017-08-09] MEDS ORDERED: CALCIUM CARBONATE Chewable 500mg TABLET PO PRN (14:10)
[2017-08-09] MEDS ORDERED: MAG-AL + SIM ORAL LIQUID 30ml PO PRN (14:11)
[2017-08-09] MEDS ORDERED: SIMETHICONE 125 MG CAPSULE PO PRN (14:11)
--- NOTE | 2017-08-09 14:21 | Progress Note ---
- Date 08/09/17 Subjective: F/U: Severe anemia, Gastric ulcer Doing okay. Does note some dyspepsia at time, worse with eating. Uncomfortable. Some ab bloating and gas. Did have stool today. Feels hungry-would like more food. No nausea. Breathing well. No chest pain. Has been up some-some unsteadiness when up. Objective Vital signs: Temperature 96.9 F 08/09/17 12:28 Pulse Rate 65 08/09/17 12:28 Respiratory Rate 16 08/09/17 12:28 Blood Pressure 124/65 08/09/17 12:28 Pulse Oximetry 97 08/09/17 12:28 Height/Weight/BMI: Height 1.57 m Weight 77.8 kg Body Mass Index 30.3 - Constitutional Present: well nourished, well developed, obese - Routine HEENT Exam Head: Present: normocephalic, atraumatic Eye: Present: EOMI, PERRL ENT: Present: mucous membranes moist - Routine Respiratory Exam Present: decreased breath sounds. Absent: rales, respiratory distress, rhonchi , wheezes, crackles - Routine Cardiovascular Exam Present: no murmur, bradycardia (Regular ) - Routine Abdominal Exam Present: soft, normoactive bowel sounds, non distended, non tender - Routine Extremities Exam Present: no edema, pulses intact. Absent: cyanosis, clubbing - Routine Musculoskeletal Exam Musculoskeletal: Present: no clubbing or cyanosis - Routine Skin Exam Present: dry, warm - Routine Neurological Exam Present: alert, CN II-XII intact, moving all extremities, normal speech. Absent : motor deficit, altered mental status - Routine Psychiatric Exam Present: normal affect, normal thought process, cooperative Results - Labs CBC & Chem 7: 08/09/17 05:41 08/09/17 05:41 Microbiology Results: Microbiology 08/07/17 14:44 Gastric Biopsy Helicobacter pylori Rapid Urease - Final 08/06/17 12:00 Urine, Voided (Cc/notcc) Urine Culture - Final Escherichia coli Assessment and Plan (1) Hyponatremia Current visit: Yes Status: Acute (2) Anemia Current visit: Yes Status: Acute (3) Hypokalemia Current visit: Yes Status: Acute Assessment and Plan: Assessment Acute anemia - suspect blood loss Large gastric ulcer seen on EGD Severe antral gastritis Duodenitis with mild ulcerations UTI - E coli growing Hypokalemia (POA) Hyponatremia (POA) Epigastric pain - suspect alcoholic gastritis Thrombocytosis (POA) Leukocytosis (POA) Elevated lipase - gastritis vs ETOHic pancreatitis Alcohol use Takotsubo cardiomyopathy Headache Hypertension Iron deficiency anemia Congestive heart failure - diastolic Neuropathy Low back pain Osteoporosis Obesity with BMI 30.4 Plan Hemoglobin 7.6 this am. Sodium 138. Potassium 3.8. Magnesium 1.5. Advance diet to regular - again, advised caution with oral intake. Continue IV Protonic and oral Carafate for ulcer healing. Give 2 grams IV magnesium as mag decreased to 1.5 today Decrease Serax to 10mg TID. Encoruage activities - nursing to ambulate QID in room/halls. Continue Rocephin for urinary coverage. E coli is sensitive to Rocephin. Will restart Norvasc to day and ARB tomorrow. Hold Coreg due to bradycardia. Can d/c tele. Repeat CBC in am due to anemia. Will recheck BMP and Mg due to hypokalemia/ hyponatremia. Case discussed with patient's . Time spent with patient care 25 minutes. DVT Prophylaxis: SCD's GI Prophylaxis: Protonix Resuscitation Status: Full Code - Time spent with patient Time with patient PN: 25 minutes Hospital Course Summary Disclaimer: The visit summary below is not to be considered part of the above Progress Note. Hospital Course: Assessment: Acute anemia - suspect blood loss UTI Hypokalemia-POA Hyponatremia -POA Epigastric pain - suspect alcoholic gastritis Alcohol use Takotsubo cardiomyopathy Headache Hypertension Iron deficiency anemia Congestive heart failure Neuropathy Low back pain Situs inversus Osteoporosis 08/06/17 Hospital Admission - CCU Admit to CCU, Dr. Reyes attending, for blood transfusion, close monitoring and further workup. Her stay is expected to exceed two overnights given the severity of her electrolyte disturbance and anemia. Dr. Hernandez consulted for EGD/colonoscopy given her anemia, epigastric pain and reported melena. Two units PRBC's typed and ordered to be given with a dose of IV Lasix to be given after the first unit is transfused. Post transfusion H&H's are reflexed. Check CBC in am. Protonix IV 40mg BID initiated for suspected GI bleed. Patient to be NPO. IVF's bolused in ER and NS continued at 100 mls/hr. Give 40mEq bolus of IV potassium chloride. Recheck BMP later today. Serax 30mg QID for alcohol withdrawal, ativan 1mg IV prn q 4 hrs for anxiety and breakthrough withdrawal sxs. Zofran prn nausea. Dilaudid prn pain. Iron studies and B12 levels pending. Richard inserted. UA +. Culture pending. Start Rocephin 1gm IV q 24 hrs for UTI. Hold all home medications until patient can take p.o. Will schedule daily IV Lasix given her CHF/cardiomyopathy SCD's for VTE prevention. Defer Lovenox at present given likely GI bleed. Patient wishes to be a FULL CODE. Patient's care to return to Dr. Leslie on discharge. 08/07/17 OP DAY - EGD with Bx. EGD revealed large gastric ulcer and duodenitis - no active bleeding noted. Continue with Protonix BID and start oral carafate ac meals and at hs. IVF changed to NS with 20 KCl at 75 cc/hr. Sodium 132 with potassium 3.4 on am lab check. HGB with improvement to 7.3 post 2 units pRBC, 7.1 on afternoon recheck. Iron stores normal. B12 level normal. Need continued monitoring of hemoglobin - possible repeat transfusion base on lab. Diet advanced to clear liquids - advised caution with oral intake. Recheck CMP, Mg, CBC and Lipase in am. Will transfer patient to medical floor on tele for continuation of care. 08/08/17 Discussed EGD findings and treatment plan with patient again, as she was groggy yesterday post EGD. Hemoglobin 7.2 this am. Sodium 132. Potassium 3.5. Magnesium 1.6. Will stop IVF. Advance to full liquids and monitor symptoms. Advised caution with oral intake. Continue IV Protonic and oral Carafate for ulcer healing. Will give oral MagOx today as noon as Mg decreased to 1.6. Decrease Serax to 15mg TID. Change Thiamine and folic acid to oral. Will d/c Richard. Increase activities - nursing to ambulate QID in room/halls. Continue Rocephin for urinary coverage. E coli is sensitive to Rocephin. Restart home Neurontin and Celexa. Hold Coreg due to bradycardia. Will hold Cozaar as BP low normal. Recheck H/H this afternoon. Repeat CBC in am due to anemia. Will recheck BMP and Mg due to hypokalemia/ hyponatremia. 08/09/17 Hemoglobin 7.6 this am. Sodium 138. Potassium 3.8. Magnesium 1.5. Advance diet to regular - again, advised caution with oral intake. Continue IV Protonic and oral Carafate for ulcer healing. Give 2 grams IV magnesium as mag decreased to 1.5 today Decrease Serax to 10mg TID. Encoruage activities - nursing to ambulate QID in room/halls. Continue Rocephin for urinary coverage. E coli is sensitive to Rocephin. Will restart Norvasc to day and ARB tomorrow. Hold Coreg due to bradycardia. Can d/c tele. Repeat CBC in am due to anemia. Will recheck BMP and Mg due to hypokalemia/ hyponatremia.
[2017-08-09] MEDS: CEFTRIAXONE 1 G in NS 100 ML IV SCH (14:31)
[2017-08-09] MEDS: MAGNESIUM SULFATE 1gm PREMIX 1 GM/100 ML BAG IV SCH ×3 (15:11→17:19)
[2017-08-09] MEDS: AMLODIPINE 5 MG TABLET PO SCH (20:35)
[2017-08-09] MEDS ORDERED: OXAZEPAM 10 MG CAPSULE PO SCH (21:00)
[2017-08-10] MEDS: HYDROCODONE/APAP 5mg/325mg TABLET PO PRN ×2 (04:06→11:42)
[2017-08-10] MEDS: SUCRALFATE 1gm/10ml ORAL LIQUID PO SCH ×2 (05:47→10:52)
[2017-08-10 07:45] VITALS: RESP 16
[2017-08-10] MEDS: ACETAMINOPHEN 325 MG TABLET PO PRN ×2 (08:10→13:49)
[2017-08-10] MEDS: FOLIC ACID 1 MG TABLET PO SCH (08:54)
[2017-08-10] MEDS: AMLODIPINE 5 MG TABLET PO SCH (08:54)
[2017-08-10] MEDS: CITALOPRAM 40 MG TABLET PO SCH (08:54)
[2017-08-10] MEDS: PANTOPRAZOLE 40 MG INJECTION IVP SCH (08:55)
[2017-08-10] MEDS: SALINE FLUSH 10ml SYRINGE IVF PRN ×2 (08:55→14:25)
[2017-08-10] MEDS: GABAPENTIN 600 MG TABLET PO SCH ×2 (08:55→14:27)
[2017-08-10] MEDS: LOSARTAN 50 MG TABLET PO SCH ×2 (08:55→10:51)
[2017-08-10 12:12] VITALS: BP 149/72; PULSE 58; TEMP 97.1; O2SAT 100
[2017-08-10] MEDS: CEFTRIAXONE 1 G in NS 100 ML IV SCH (14:24)
--- NOTE | 2017-08-10 14:59 | Progress Note ---
- Date 08/10/17 Subjective: F/U: Severe anemia, large gastric ulcer Doing well. Tolerating oral intake without ab pain, nausea, or cramps. Appetite normal. Breathing well. No chest pain. Tired and fatigued, but able to be up and ambulatory without problems. No f/c. Objective Vital signs: Temperature 97.1 F 08/10/17 12:11 Pulse Rate 58 L 08/10/17 12:11 Respiratory Rate 16 08/10/17 12:11 Blood Pressure 149/72 H 08/10/17 12:11 Pulse Oximetry 100 08/10/17 12:11 Height/Weight/BMI: Height 1.57 m Weight 77.5 kg Body Mass Index 30.3 - Constitutional Present: no acute distress, well nourished, well developed, obese, cooperative - Routine HEENT Exam Head: Present: normocephalic, atraumatic Eye: Present: EOMI, PERRL ENT: Present: mucous membranes moist - Routine Respiratory Exam Present: CTA bilaterally. Absent: rales, respiratory distress, rhonchi, wheezes , crackles - Routine Cardiovascular Exam Present: no murmur, bradycardia - Routine Abdominal Exam Present: soft, non distended, non tender. Absent: guarding - Routine Extremities Exam Present: no edema. Absent: cyanosis, clubbing - Routine Musculoskeletal Exam Musculoskeletal: Present: no clubbing or cyanosis, normal strength - Routine Skin Exam Present: dry, warm - Routine Neurological Exam Present: alert, CN II-XII intact, moving all extremities, vision grossly intact , hearing grossly intact, normal speech. Absent: motor deficit, altered mental status - Routine Psychiatric Exam Present: normal affect, normal thought process, cooperative. Absent: anxious Results - Labs CBC & Chem 7: 08/10/17 03:43 08/10/17 03:43 Microbiology Results: Microbiology 08/07/17 14:44 Gastric Biopsy Helicobacter pylori Rapid Urease - Final 08/06/17 12:00 Urine, Voided (Cc/notcc) Urine Culture - Final Escherichia coli Assessment and Plan (1) Hyponatremia Current visit: Yes Status: Acute (2) Anemia Current visit: Yes Status: Acute (3) Hypokalemia Current visit: Yes Status: Acute Assessment and Plan: Assessment Acute anemia - suspect blood loss Large gastric ulcer seen on EGD Severe antral gastritis Duodenitis with mild ulcerations UTI - E coli Hypokalemia (POA) Hyponatremia (POA) Epigastric pain - suspect alcoholic gastritis Thrombocytosis (POA) Leukocytosis (POA) Elevated lipase - gastritis vs ETOHic pancreatitis Alcohol use Takotsubo cardiomyopathy Headache Hypertension Iron deficiency anemia Congestive heart failure - diastolic Neuropathy Low back pain Osteoporosis Obesity with BMI 30.4 Plan Hemoglobin stable. Not seeing evidence for active bleeding. Oral drive improve. BP stable, but HR still low - Coreg on hold. Day #5 of Rocephin - no evidence for sepsis. Can discontinue Rocephin. Electrolytes stable. Will discharge to home. Medically stable. Discussed with patient and her about avoiding NSAIDS and ETOH. Will continue Omeprazole 40mg BIDAC and Carafate 1 gram ACmeals and HS for 2 months. Likely need repeat endoscopy in 3 months to document healing of ulcer. Would hold Fosamax for 1 month to allow for healing of ulcer. Ferrous sulfate 325mg with vitamin C 500mg daily to help blood counts. Hold Coreg due to persistent bradycardia. Hold ASA secondary to ulcer - could restart in 8 to 12 weeks once ulcer headed. F/U with Dr Turner in 1 week Recommend recheck CBC at that time due to anemia. Possible restart Coreg depending on how HR and BP is doing. See orders for details. Case discussed with patient's . Time spent with patient care & discharge greater than 30 minutes. DVT Prophylaxis: SCD's GI Prophylaxis: Protonix Resuscitation Status: Full Code Hospital Course Summary Disclaimer: The visit summary below is not to be considered part of the above Progress Note. Hospital Course: Assessment: Acute anemia - suspect blood loss UTI Hypokalemia-POA Hyponatremia -POA Epigastric pain - suspect alcoholic gastritis Alcohol use Takotsubo cardiomyopathy Headache Hypertension Iron deficiency anemia Congestive heart failure Neuropathy Low back pain Situs inversus Osteoporosis 08/06/17 Hospital Admission - CCU Admit to CCU, Dr. Reyes attending, for blood transfusion, close monitoring and further workup. Her stay is expected to exceed two overnights given the severity of her electrolyte disturbance and anemia. Dr. Hernandez consulted for EGD/colonoscopy given her anemia, epigastric pain and reported melena. Two units PRBC's typed and ordered to be given with a dose of IV Lasix to be given after the first unit is transfused. Post transfusion H&H's are reflexed. Check CBC in am. Protonix IV 40mg BID initiated for suspected GI bleed. Patient to be NPO. IVF's bolused in ER and NS continued at 100 mls/hr. Give 40mEq bolus of IV potassium chloride. Recheck BMP later today. Serax 30mg QID for alcohol withdrawal, ativan 1mg IV prn q 4 hrs for anxiety and breakthrough withdrawal sxs. Zofran prn nausea. Dilaudid prn pain. Iron studies and B12 levels pending. Richard inserted. UA +. Culture pending. Start Rocephin 1gm IV q 24 hrs for UTI. Hold all home medications until patient can take p.o. Will schedule daily IV Lasix given her CHF/cardiomyopathy SCD's for VTE prevention. Defer Lovenox at present given likely GI bleed. Patient wishes to be a FULL CODE. Patient's care to return to Dr. Leslie on discharge. 08/07/17 OP DAY - EGD with Bx. EGD revealed large gastric ulcer and duodenitis - no active bleeding noted. Continue with Protonix BID and start oral carafate ac meals and at hs. IVF changed to NS with 20 KCl at 75 cc/hr. Sodium 132 with potassium 3.4 on am lab check. HGB with improvement to 7.3 post 2 units pRBC, 7.1 on afternoon recheck. Iron stores normal. B12 level normal. Need continued monitoring of hemoglobin - possible repeat transfusion base on lab. Diet advanced to clear liquids - advised caution with oral intake. Recheck CMP, Mg, CBC and Lipase in am. Will transfer patient to medical floor on tele for continuation of care. 08/08/17 Discussed EGD findings and treatment plan with patient again, as she was groggy yesterday post EGD. Hemoglobin 7.2 this am. Sodium 132. Potassium 3.5. Magnesium 1.6. Will stop IVF. Advance to full liquids and monitor symptoms. Advised caution with oral intake. Continue IV Protonic and oral Carafate for ulcer healing. Will give oral MagOx today as noon as Mg decreased to 1.6. Decrease Serax to 15mg TID. Change Thiamine and folic acid to oral. Will d/c Richard. Increase activities - nursing to ambulate QID in room/halls. Continue Rocephin for urinary coverage. E coli is sensitive to Rocephin. Restart home Neurontin and Celexa. Hold Coreg due to bradycardia. Will hold Cozaar as BP low normal. Recheck H/H this afternoon. Repeat CBC in am due to anemia. Will recheck BMP and Mg due to hypokalemia/ hyponatremia. 08/09/17 Hemoglobin 7.6 this am. Sodium 138. Potassium 3.8. Magnesium 1.5. Advance diet to regular - again, advised caution with oral intake. Continue IV Protonic and oral Carafate for ulcer healing. Give 2 grams IV magnesium as mag decreased to 1.5 today Decrease Serax to 10mg TID. Encoruage activities - nursing to ambulate QID in room/halls. Continue Rocephin for urinary coverage. E coli is sensitive to Rocephin. Will restart Norvasc to day and ARB tomorrow. Hold Coreg due to bradycardia. Can d/c tele. Repeat CBC in am due to anemia. Will recheck BMP and Mg due to hypokalemia/ hyponatremia. 08/10/17 Discharge Hemoglobin stable at 7.2. Not seeing evidence for active bleeding. Oral drive improve. Bx reports not showing cancer or H pylori. BP stable, but HR still low - Coreg on hold. Day #5 of Rocephin - no evidence for sepsis. Can discontinue Rocephin. Electrolytes stable. Will discharge to home. Medically stable. Discussed with patient and her about avoiding NSAIDS and ETOH. Will continue Omeprazole 40mg BIDAC and Carafate 1 gram ACmeals and HS for 2 months. Likely need repeat endoscopy in 3 months to document healing of ulcer. Would hold Fosamax for 1 month to allow for healing of ulcer. Ferrous sulfate 325mg with vitamin C 500mg daily to help blood counts. Hold Coreg due to persistent bradycardia. Hold ASA secondary to ulcer - could restart in 8 to 12 weeks once ulcer headed. F/U with Dr Turner in 1 week Recommend recheck CBC at that time due to anemia. Possible restart Coreg depending on how HR and BP is doing. See orders for details.
--- NOTE | 2017-08-10 16:11 | Discharge Summary ---
Discharge Information Date of admission: 08/06/17 10:56 Anticipated date of discharge: 08/10/17 Attending Physician: Harpal Reyes MD Primary care physician: Jerome Leslie MD Consults: Physician Consult: Bashir Hernandez Reason For Exam: anemia, black stools, suspect alcoholic gastritis - Discharge Diagnosis (1) Anemia Status: Acute (2) Hyponatremia Status: Acute (3) Hypokalemia Status: Acute Discharge diagnosis Acute anemia - Secondary to blood loss Associated conditions and complications Large gastric ulcer seen on EGD Severe antral gastritis Duodenitis with mild ulcerations UTI - E coli Hypokalemia (POA) Hyponatremia (POA) Epigastric pain - suspect alcoholic gastritis Thrombocytosis (POA) Leukocytosis (POA) Elevated lipase - gastritis vs ETOHic pancreatitis Alcohol use Takotsubo cardiomyopathy Headache Hypertension Iron deficiency anemia Congestive heart failure - diastolic Neuropathy Low back pain Osteoporosis Obesity with BMI 30.4 - Procedures Procedures: DATE OF OPERATION: 08/07/2017 SURGEON: Bashir Hernandez MD PREOPERATIVE DIAGNOSIS: Melena. POSTOPERATIVE DIAGNOSES 1. Severe antral gastritis with ulcerations including one large antral ulcer - no active bleeding. 2. Moderate duodenitis with mild ulcerations but no active bleeding. PROCEDURE Esophagogastroduodenoscopy with antral biopsy for KEYSHAWN testing and antral biopsies and duodenal biopsies for histology. - Laboratory Labs: Admit Lab 08/06/17 09:53 WBC 12.6 H Hgb 5.3 L* Hct 16.1 L* MCV 95.3 Plt Count 515 H Neutrophils % (Manual) 60.0 Band Neutrophils % 14.0 H Lymphocytes % (Manual) 17.0 L Monocytes % (Manual) 9.0 Admit Lab 08/06/17 08/06/17 09:53 09:53 Sodium 117 L* Potassium 2.9 L* Chloride 77 L Carbon Dioxide 22 Anion Gap 18 H BUN 18.0 H Creatinine 1.2 GFR Calculation 45 BUN/Creatinine Ratio 15 Glucose 105 Calculated Osmolality 229 L Calcium 9.0 Total Bilirubin 0.80 AST 45 H ALT 44 Alkaline Phosphatase 110 Troponin I < 0.012 Total Protein 6.9 Albumin 3.9 Globulin 3.0 Albumin/Globulin Ratio 1.3 Lipase 1221 H Laboratory Tests 08/06/17 09:53 Iron 239 H Ferritin 1950 H Vitamin B12 961 H 08/10/17 03:43 08/10/17 03:43 - Microbiology Microbiology 08/07/17 14:44 Gastric Biopsy Helicobacter pylori Rapid Urease - Final 08/06/17 12:00 Urine, Voided (Cc/notcc) Urine Culture - Final Escherichia coli - Radiology Radiology: Date of Exam: 08/06/17 PROCEDURE: XR chest 1V FINDINGS: The lungs are hypoinflated, but clear. There is no abnormal airspace opacity, pleural effusion or pneumothorax identified. The heart size, pulmonary vasculature and mediastinum are within normal limits. No significant skeletal abnormality is seen. IMPRESSION: No acute cardiopulmonary abnormality. Date of Exam: 08/06/17 PROCEDURE: CT head/brain wo con FINDINGS: Mild generalized atrophy. The ventricles are of normal size, shape, and configuration for the patient's age. There is no evidence of acute intracranial hemorrhage, midline displacement, or mass effect. There are scattered areas of low attenuation in the white matter which most likely represent changes of chronic microvascular ischemia. The CT attenuation of the brain parenchyma is otherwise normal within the cerebellum, brain stem, and cerebral hemispheres. The tympanic cavities and mastoid air cells are free of appreciable disease. There are no definite fractures of the skull base, calvarium, or visualized portion of the midface. IMPRESSION: No CT evidence of acute traumatic intracranial injury. History of Present Illness HPI: Patient is a 66-year-old female who presented to the emergency room at the request of her PCP, Dr. Leslie, due to hemoglobin of 5.3, potassium 2.9 and sodium of 117. Patient has had progressive weakness over the last month or more. She's had black stools for a week. Her reports they are "runny." She denies abdominal pain, but complains of a "knot" in her upper abdomen. She' s had "indigestion" which she states is new for her. She's been taking 2 Advil 4 -5 times a day per her for chronic hip pain. She also takes 2-3 [place] daily. She states she's had no appetite and has not been eating. She drinks 2 drinks per day of vodka and cranberry juice. She's had nausea and vomiting. She states that most mornings at least over the past 3-4 weeks or more she's vomited up her pills. Her reports she also vomits in the evenings, almost always when she takes her pills. She denies blood in the emesis. She states she's been taking some Pepto-Bismol for that past week. Patient was seen in the CCU. Her supplied most of the history as he reports she has had memory issues since August. He states she has been seen by a specialist in [place] (Dr Beyer) who specializes in "memory loss." He says that doctor has mentioned dementia, but has not said that is what she has for sure. He tells me patient has a brain MRI scheduled next week. Patient is alert and oriented x 3. In review of Dr. Beyer's notes from 07/10/17, her symptoms began in August when they were on the way to visit the patient's sister. Patient became ill, short of breath and she ended up in the emergency room and was diagnosed with transient global amnesia. had reported that she's never been the same since that time. She's had multiple falls. She has not driven since August. She was let go from her job in January because of problems with her memory. For complete details of the H&P refer to that document. Objective Vital signs: Temperature 97.1 F 08/10/17 12:11 Pulse Rate 58 L 08/10/17 12:11 Respiratory Rate 16 08/10/17 12:11 Blood Pressure 149/72 H 08/10/17 12:11 Pulse Oximetry 100 08/10/17 12:11 Height/Weight/BMI: Height 1.57 m Weight 77.5 kg Body Mass Index 30.3 Hospital Course This is a general summary of the patient's hospital course. For more details refer to the complete medical record. Hospital course: Assessment: Acute anemia - suspect blood loss UTI Hypokalemia-POA Hyponatremia -POA Epigastric pain - suspect alcoholic gastritis Alcohol use Takotsubo cardiomyopathy Headache Hypertension Iron deficiency anemia Congestive heart failure Neuropathy Low back pain Situs inversus Osteoporosis 08/06/17 Hospital Admission - CCU Admit to CCU, Dr. Reyes attending, for blood transfusion, close monitoring and further workup. Her stay is expected to exceed two overnights given the severity of her electrolyte disturbance and anemia. Dr. Hernandez consulted for EGD/colonoscopy given her anemia, epigastric pain and reported melena. Two units PRBC's typed and ordered to be given with a dose of IV Lasix to be given after the first unit is transfused. Post transfusion H&H's are reflexed. Check CBC in am. Protonix IV 40mg BID initiated for suspected GI bleed. Patient to be NPO. IVF's bolused in ER and NS continued at 100 mls/hr. Give 40mEq bolus of IV potassium chloride. Recheck BMP later today. Serax 30mg QID for alcohol withdrawal, ativan 1mg IV prn q 4 hrs for anxiety and breakthrough withdrawal sxs. Zofran prn nausea. Dilaudid prn pain. Iron studies and B12 levels pending. Richard inserted. UA +. Culture pending. Start Rocephin 1gm IV q 24 hrs for UTI. Hold all home medications until patient can take p.o. Will schedule daily IV Lasix given her CHF/cardiomyopathy SCD's for VTE prevention. Defer Lovenox at present given likely GI bleed. Patient wishes to be a FULL CODE. Patient's care to return to Dr. Leslie on discharge. 08/07/17 OP DAY - EGD with Bx. EGD revealed large gastric ulcer and duodenitis - no active bleeding noted. Continue with Protonix BID and start oral Carafate ac meals and at hs. IVF changed to NS with 20 KCl at 75 cc/hr. Sodium 132 with potassium 3.4 on am lab check. HGB with improvement to 7.3 post 2 units pRBC, 7.1 on afternoon recheck. Iron stores normal. B12 level normal. Need continued monitoring of hemoglobin - possible repeat transfusion base on lab. Diet advanced to clear liquids - advised caution with oral intake. Recheck CMP, Mg, CBC and Lipase in am. Will transfer patient to medical floor on tele for continuation of care. 08/08/17 Discussed EGD findings and treatment plan with patient again, as she was groggy yesterday post EGD. Hemoglobin 7.2 this am. Sodium 132. Potassium 3.5. Magnesium 1.6. Will stop IVF. Advance to full liquids and monitor symptoms. Advised caution with oral intake. Continue IV Protonic and oral Carafate for ulcer healing. Will give oral MagOx today as noon as Mg decreased to 1.6. Decrease Serax to 15mg TID. Change Thiamine and folic acid to oral. Will d/c Richard. Increase activities - nursing to ambulate QID in room/halls. Continue Rocephin for urinary coverage. E coli is sensitive to Rocephin. Restart home Neurontin and Celexa. Hold Coreg due to bradycardia. Will hold Cozaar as BP low normal. Recheck H/H this afternoon. Repeat CBC in am due to anemia. Will recheck BMP and Mg due to hypokalemia/ hyponatremia. 08/09/17 Hemoglobin 7.6 this am. Sodium 138. Potassium 3.8. Magnesium 1.5. Advance diet to regular - again, advised caution with oral intake. Continue IV Protonic and oral Carafate for ulcer healing. Give 2 grams IV magnesium as mag decreased to 1.5 today Decrease Serax to 10mg at night. Encourage activities - nursing to ambulate QID in room/halls. Continue Rocephin for urinary coverage. E coli is sensitive to Rocephin. Will restart Norvasc to day and ARB tomorrow. Hold Coreg due to bradycardia. Can d/c tele. Repeat CBC in am due to anemia. Will recheck BMP and Mg due to hypokalemia/ hyponatremia. 08/10/17 Discharge Hemoglobin stable at 7.2. Not seeing evidence for active bleeding. Oral drive improve. Bx reports not showing cancer or H pylori. BP stable, but HR still low - Coreg on hold. Day #5 of Rocephin - no evidence for sepsis. Can discontinue Rocephin. Electrolytes stable. Will discharge to home. Medically stable. Discussed with patient and her about avoiding NSAIDS and ETOH. Will continue Omeprazole 40mg BIDAC and Carafate 1 gram ACmeals and HS for 2 months. Likely need repeat endoscopy in 3 months to document healing of ulcer. Would hold Fosamax for 1 month to allow for healing of ulcer. Ferrous sulfate 325mg with vitamin C 500mg daily to help blood counts. Hold Coreg due to persistent bradycardia. Hold ASA secondary to ulcer - could restart in 8 to 12 weeks once ulcer headed. F/U with Dr Turner in 1 week Recommend recheck CBC at that time due to anemia. Possible restart Coreg depending on how HR and BP is doing. See orders for details. Time spent with patient: discharge greater than 30 minutes DVT Prophylaxis: SCD's GI Prophylaxis: Protonix Discharge Plan - Discharge Disposition Discharge Date: 08/10/17 Disposition: 01 Discharged Home, Self-Care *Condition: Stable for Transport Reason For Visit (Visit label in EMR): anemia - Discharge Medications *Discharge Medications: New Ascorbic Acid [Vitamin C] 500 mg PO WB #1 bottle RX: Ferrous Sulfate [Iron] 325 mg PO WB #1 bottle RX: Multivitamin [Multivitamins] 1 tab PO DAILY #1 bottle RX: Omeprazole 40 mg PO ACBID #60 capsule.dr RX: Simethicone [Phazyme] 125 mg PO Q6HR PRN cap PRN Reason: Gas RX: Sucralfate [Carafate] 1 gm PO ACHS #120 tab RX: CALCIUM CARBONATE Chewable [Tums] 1,000 mg PO Q4H PRN tab.chew PRN Reason: Dyspepsia Continue RX: Furosemide [Lasix] 60 mg PO DAILY #0 RX: Potassium Chloride [Klor-Con M20] 20 meq PO TID #0 RX: Amlodipine [Norvasc] 5 mg PO BID RX: Hydrocodone/APAP 5/325 [[place] 5/325] 1 tab PO TID PRN PRN Reason: Pain RX: Citalopram [Celexa] 40 mg PO DAILY RX: Gabapentin 600 mg PO TID #0 RX: Losartan [Cozaar] 50 mg PO DAILY RX: Cholecalciferol (Vitamin D3) [Vitamin D3] 1,000 unit PO DAILY RX: LORazepam [Ativan] 0.5 mg PO DAILY PRN PRN Reason: Anxiety Discontinued RX: Aspirin [Aspir 81] 81 mg PO DAILY #0 RX: Alendronate [Fosamax] 70 mg PO WEEKLY #0 RX: Carvedilol [Coreg] 3.125 mg PO BIDWM #60 tab - Discharge Packet/Instructions *Diet: Heart healthy diet. No alcohol as it will worsen your ulcer and gastritis. *Activity: As tolerated *Pain Management/Treatment: Tylenol and [place] as needed. Do not use NSAIDS - Aspirin, ibuprofin, naproxen, or any other OTC pain med that is not Tylenol ( acetaminophen). *Wound Care: n/a Additional Instructions: Hold Fosamax for at least 1 month to help stomach ulcer to heal. Hold Aspirin for at least 1 month to help stomach ulcer to heal. Coreg (carvediolol) was stopped during hospitalization as your heart rate was low. Monitor pulse (Heart rate). Dr Leslie will tell you when you can restart Coreg. Use Ferrous sulfate (IRON) 325mg and Vitamin C 500mg taken together daily with breakfast to help anemia. Omeprazole (Prilosec) 40mg needs to be taken twice a day (before breakfast and evening meal) to help heal ulcer. Your will need to use this for at least 2 months - then could possibly decrease to once a day. Carafate (sucrafate) 1gram needs to be taken just before eating meals (3 times a day) and before bed. Crush it up, or chew it up completely, before you take it. Do NOT use any pain medication other than Tylenol ( acetaminophen) or [place]. No ibuprofen, naproxen, or other OTC pain medications. Do not use alcohol as it will worsen your stomach ulcer and gastritis. *Expected Signs/Symptoms: Improvement of blood counts. Improvement for functional status. *Notify Physician if: Temp >100.4. Intractable nausea or ab pain. *During Business Hours Contact: Dr Leslie *After Business Hours Contact: Call [facility] and have Dr Leslie or his covering physician paged *Pending Lab/Results: No Pending Lab - Referrals/Follow Up *Referrals/Follow Up: Jerome Leslie MD [Primary Care Provider] - 1 Week (Hospital follow up in 1 week for anemia secondary to large ulcer. Recommend checking CBC secondary to anemia. Fosamax is to be held for 1 month to help heal ulcer. ASA to be held for 1 month to help heal ulcer. Coreg stopped due to Bradycardia during hospital. Possible restart if HR improves. Will need to continue Omeprazole and Carafate for at least 2 months. Recommend repeat EGD in 3 months to document resolution of ulcer. ) - Patient Handouts Patient Handouts: Anemia (GEN) - Dismissal Complete Discharge Instructions are:: Complete Attestation Narriative - Attestation Attestation Narrative: 08/10/17 16:19 I have independently interviewed and examined patient prior to discharge. See my progress note from today for details. Medically stable for discharge to home.
--- NOTE | 2017-08-12 08:31 | Progress Note ---
DATE OF VISIT 08/09/2017 REASON FOR VISIT Follow GI bleed. SUBJECTIVE Thao is doing okay today. She is tolerating the full liquid diet and does appreciate the options that she has with liquids. She is still desiring to eat regular food. She has been having bowel movements and her last few bowel movements have not had any evidence of blood in the stool. Hemoglobin was 7.6 this morning. She was complaining of some mild right abdominal pain. OBJECTIVE VITAL SIGNS: Afebrile with stable vitals on room air. GENERAL: The patient is awake and alert, in no acute distress. She is sitting in bed eating lunch. ABDOMEN: Soft, obese, nontender to palpation, nondistended. IMPRESSION 1. Severe antral gastritis with ulcerations and moderate duodenitis with ulcerations - stable clinically. 2. Acute blood loss anemia secondary to GI losses - stable following transfusion. PLAN 1. Continue Protonix and Carafate. 2. Avoid ibuprofen and alcohol. I did review these recommendations with the patient and her today. 3. I think it would be reasonable to advance to a regular diet. 4. She is stable for dismissal from a surgical standpoint. I will sign off of her case. Please contact me if any further surgical needs arise before she is dismissed from the hospital. 5. She can discuss outpatient colonoscopy with Dr. Leslie if it is felt that this is needed on an elective basis. She is not due for repeat colon cancer screening until 2019. NGUYEN
== END 2017-08-10 15:35 | disposition home or self-care (01) | DRG 378 ==
LOC: ED 09:17 → CCU 10:56 → MED 08-07 19:54
PROVIDERS: ADMIT Hospitalist; ATTEND Hospitalist
PROC: END.EGD (2017-08-07 14:00)